=== PATIENT | female | born 1975 | race Caucasian/White ===

== ENCOUNTER 2018-09-01 12:40 | Outpatient (CLI) | payer BC ==
[~2018-09-01] VITALS: Ht 157.5 cm; Wt 66.5 kg
[2018-09-01 12:59] VITALS: Ht 157.5 cm; Wt 66.5 kg
[2018-09-01] MEDS ORDERED: PREN-93 PO (12:59)
[2018-09-01 13:00] VITALS: BP 118/71; PULSE 78; RESP 18
--- NOTE | 2018-09-01 17:21 | TRIAGE ---
OB Triage Datetime Report Generated by CPN: 09/01/2018 17:20 Datetime: 09/01/2018 14:52 Labor Evaluation Frequency: 0 Monitor Mode: External Pattern: Normal: <= 5 Contractions in 10 Minutes Resting Tone [place]: Relaxed Heart Rate FHR Baseline Rate: 140 Monitor Mode: External US Variability: Moderate 6-25 bpm Accelerations: 10X10 Decelerations: None Category: Category I Datetime: 09/01/2018 12:56 Assessment Type: Triage Maternal Assessment Level of Consciousness: Fully Conscious DTR's/Clonus: DTRs 2+; No Clonus Headache: Denies Blurred Vision: No Respiratory Effort: Unlabored; Regular Rhythm; Equal Expansion Breath Sounds, Left: Clear and Equal Breath Sounds, Right: Clear and Equal Nausea/Vomiting: Denies RUQ Epigastric Pain: Denies Lower Extremities Edema: None Degree: None Upper Extremities Edema: None Degree: None Facial Edema: None Fall Risk Assessment History of Falling: (0) No Secondary Diagnosis: (0) No Ambulatory Aid: (0) Bedrest/Nurse Assist IV Therapy: (0) No Gait: (0) Normal/Bedrest/Immobile Mental Status: (0) Oriented to Own Ability Fall Score: 0 Fall Risk Score Definition: No Risk: No action required Datetime: 09/01/2018 12:55 Time of Arrival: 09/01/2018 12:29 EGA: 22.1 Arrived By: Ambulatory Arrived From: Dr. Ortiz Chief Complaint: PT. SENT FROM CLINIC FOR EVAL. OF RIGHT CALF PAIN AND HBP Movement: Present Contractions: Denies/Absent Rupture of Membranes: Denies Vaginal Bleeding: None Vaginal Discharge: Denies Recent Sexual Intercouse: Denies Abdominal Trauma: Not Applicable Patient Complaints: None Time Provider Notified: 09/01/2018 13:51 Provider Notified: DELSHAD Initial Plan: CBC/CMP/URIC ACID/BLE DOPPLER Datetime: 09/01/2018 12:52 Monitor Mode: External Monitor Mode: External US
--- NOTE | 2018-09-02 23:53 | PN ---
Triage Information Date/Time Reason for visit: elevated BP in clinic and right calf pain Weeks of Gestation 22 weeks /Para Diabetes: none Hypertention: none Objective Vital Signs Date Temp Pulse Resp B/P (MAP) Pulse Ox O2 O2 Flow FiO2 Time Delivery Rate 09/01/18 98.8 78 18 118/71 99 Room Air 13:00 (87) Heart Rate: 140's Heart Rate Comments Appropriate for GA Results/Medications Result Diagram: 09/01/18 1321 09/01/18 1321 Imaging Results Venous doppler negative for DVT Disposition: Discharge Assessment/Plan No sign of preeclampsia FREEDOM ABBOTT MD Sep 02, 2018 23:53
== END 2018-09-01 17:15 | disposition home or self-care (01) ==
LOC: OBT 12:40 → L-D 12:40 → OBT 17:15
PROVIDERS: ATTEND Obstetrics & Gynecology
DX: O26.893 Other specified pregnancy related conditions, third trimester (principal); M79.661 Pain in right lower leg; Z3A.22 22 weeks gestation of pregnancy
CPT/HCPCS: 80053; 81003; 84560; 85025; 93970; Z7500; G0463

== ENCOUNTER 2018-11-11 15:53 | Outpatient (CLI) | payer BC ==
[~2018-11-11] VITALS: Ht 157.5 cm; Wt 69.3 kg
[~2018-11-11 15:53] MED LIST: PREN-93 PO
[2018-11-11 16:14] VITALS: BP 125/75; PULSE 79; RESP 18
[2018-11-11 16:15] VITALS: Ht 157.5 cm; Wt 69.3 kg
--- NOTE | 2018-11-11 17:44 | PN ---
Triage Information Date/Time Reason for visit: elevated BP in clinic Weeks of Gestation 32 weeks /Para L1 Diabetes: none Hypertention: none Objective Vital Signs Date Temp Pulse Resp B/P (MAP) Pulse Ox O2 O2 Flow FiO2 Time Delivery Rate 11/11/18 98.0 79 18 125/75 94 Room Air 16:14 (92) Heart Rate: 130's Heart Rate Comments Reactive Contractions: None Results/Medications Result Diagram: 11/11/18 1617 11/11/18 1617 Results 24 hrs Laboratory Tests Test 11/11/18 15:55 11/11/18 16:17 Urine Color YELLOW Urine Clarity CLEAR Urine pH 7.0 Urine Specific [place] 1.013 Urine Ketones NEGATIVE Urine Nitrite NEGATIVE Urine Bilirubin NEGATIVE Urine Urobilinogen NEGATIVE Urine Leukocyte Esterase NEGATIVE Urine Hemoglobin NEGATIVE Urine Glucose NEGATIVE Urine Total Protein NEGATIVE White Blood Count 7.8 Red Blood Count 3.76 L Hemoglobin 11.9 L Hematocrit 34.5 L Mean Corpuscular Volume 91.8 Mean Corpuscular Hemoglobin 31.6 Mean Corpuscular Hemoglobin Concent 34.5 Red Cell Distribution Width 12.1 Platelet Count 234 Mean Platelet Volume 9.0 Immature Granulocytes % 0.500 H Neutrophils % 67.2 Lymphocytes % 25.1 Monocytes % 6.6 Eosinophils % 0.3 Basophils % 0.3 Nucleated Red Blood Cells % 0.0 Immature Granulocytes # 0.040 H Neutrophils # 5.2 Lymphocytes # 2.0 Monocytes # 0.5 Eosinophils # 0.0 Basophils # 0.0 Nucleated Red Blood Cells # 0.0 Sodium Level 137 Potassium Level 4.3 Chloride Level 106 Carbon Dioxide Level 23 Anion Gap 8 Blood Urea Nitrogen 9 Creatinine 0.61 Est Glomerular Filtrat Rate mL/min > 60 Glucose Level 97 Uric Acid 5.4 Calcium Level 8.9 Total Bilirubin 0.4 Direct Bilirubin 0.00 Indirect Bilirubin 0.4 Aspartate Amino Transf (AST/SGOT) 28 Alanine Aminotransferase (ALT/SGPT) 29 Alkaline Phosphatase 183 H Total Protein 6.7 Albumin 3.3 Globulin 3.40 H Albumin/Globulin Ratio 0.97 Imaging Results EFW and BPP normal Disposition: Discharge Assessment/Plan Follow up in office on 11/14/2018. FREEDOM ABBOTT MD November 11, 2018 17:44
== END 2018-11-11 17:42 | disposition home or self-care (01) ==
LOC: OBT 15:53 → L-D 15:55 → OBT 17:42
PROVIDERS: ATTEND Obstetrics & Gynecology
DX: O26.893 Other specified pregnancy related conditions, third trimester (principal); R03.0 Elevated blood-pressure reading, without diagnosis of hypertension; O09.523 Supervision of elderly multigravida, third trimester; Z3A.32 32 weeks gestation of pregnancy
CPT/HCPCS: 76815; 76818; 80053; 81003; 84560; 85025; Z7500; G0463

== ENCOUNTER 2018-11-29 19:38 | Inpatient (IN) | payer BC ==
[~2018-11-29] VITALS: Ht 162.6 cm; Wt 69.8 kg
[2018-11-29 19:52] VITALS: BP 166/90; PULSE 79; RESP 20
[2018-11-29 19:53] VITALS: Ht 162.6 cm; Wt 69.8 kg
[2018-11-29] MEDS: LACTATED RINGER'S 1,000 ML IV SCH (21:02)
[2018-11-29] MEDS ORDERED: BUTORPHANOL 2 MG INJ IV ONE (22:00)
[2018-11-29] MEDS ORDERED: LACTATED RINGER'S 500 ML IV ONE (22:00)
[2018-11-29] MEDS: DEXTROSE 5%-LR 1,000 ML IV SCH (23:56)
[2018-11-30] MEDS: DEXTROSE 5%-LR 1,000 ML IV SCH (07:34)
[2018-11-30] MEDS: PRENATAL VITAMIN PO SCH (09:35)
[2018-11-30] MEDS: BETAMET NA PHOS/AC(6 MG/ML) 2 ML INJ SYG IM SCH (12:10)
[2018-11-30] MEDS: LACTATED RINGER'S 1,000 ML IV SCH ×2 (16:13→20:06)
--- NOTE | 2018-11-30 18:12 | HP ---
Date/Time of Note Date/Time of Note DATE: 11/30/18 TIME: 18:10 OB - History Hx of Present Chief Complaint: abdomional pain Estimated Due Date: Jan 04, 2019 : 3 Para: 2 Spontaneous : 0 Therapeutic : 0 Care: Good Care Ultrasounds: Normal mid trimester US Obstetrical Complications: None Medical Complications: None Past Family/Social History * Past Medical, Surgical, Family and Obstetric Histories reviewed from chart. OB Admission Exam Vital Signs Vital Signs Vital Signs Date Temp Pulse Resp B/P (MAP) Pulse Ox O2 O2 Flow FiO2 Time Delivery Rate 11/29/18 97.9 79 20 166/90 Room Air 19:52 (115) Physical Exam HEENT: WNL Heart: Rhythm Normal Lungs: Clear, Equal Abdomen: WNL Extremities: Normal Reflexes: Normal Heart Rate: 120's Accelerations: Accelerations Present Decelerations: No Decelerations Varibility: Moderate Contractions on Admission: None Last 72 hours Lab Results CBC & BMP 11/29/18 21:00 11/30/18 05:45 11/30/18 14:05 11/30/18 16:11 Liver Function Test 11/29/18 21:00 11/30/18 05:45 11/30/18 16:11 Alanine Aminotransferase (ALT/SGPT) 26 19 29 Albumin 3.6 3.1 L 3.2 L Alkaline Phosphatase 210 H 169 H 187 H Aspartate Amino Transf (AST/SGOT) 23 26 31 Direct Bilirubin 0.00 0.00 0.00 Total Protein 7.1 6.0 #L 6.6 OB Assessment/Plan Reason for admission: other Other Assessment: abdominal pain R/O preeclampsia Plan: Other Other plan: Admit PIH panel 24 hour urine collection FREEDOM ABBOTT MD Nov 30, 2018 18:12
[2018-12-01] MEDS: LACTATED RINGER'S 1,000 ML IV SCH ×2 (00:30→08:25)
[2018-12-01] MEDS: BETAMET NA PHOS/AC(6 MG/ML) 2 ML INJ SYG IM SCH (12:14)
[2018-12-01] MEDS: PRENATAL VITAMIN PO SCH (12:14)
--- NOTE | 2018-12-01 13:59 | QN ---
Documentation Comment No complaint Afebrile VSS Strip Reactive, few episodes of heart deceleration noted earlier BPP 8/8 24 hour urine protein 384 Will get Perinatology consult FREEDOM ABBOTT MD Dec 01, 2018 13:59
--- NOTE | 2018-12-02 02:23 | CONS ---
DATE OF ADMISSION: 11/29/2018 DATE OF CONSULTATION: 12/01/2018 TYPE OF CONSULTATION: Perinatology. HISTORY OF PRESENT ILLNESS: The patient is 43-year-old currently at 35 weeks and 1 day, presented wi th abnormal high blood pressure. She has had 1 severe range blood pressure, otherwise in the moderat e range on no medication. She denies chronic hypertensive medications. She had some general abdomin al pain. Before the time that she came in however she has no complaints. PAST SURGICAL HISTORY: Not significant. OBSTETRICAL HISTORY: Not significant. REVIEW OF SYSTEMS: All reviewed, all negative. VITAL SIGNS: Blood pressure as I am talking to her, her systolic blood pressure is 160/78. Physical examination deferred. LABORATORY DATA: Platelet is normal. AST, ALT are normal. Creatinine at the time of admission was 0.7. It has decreased to 0.66. heart tones reassuring. Contractions none. IMPRESSION: Intrauterine at 35 weeks and 1 day, currently mild preeclampsia given the 24-h our urine protein over 300 mg and one severe range blood pressure. I do not count the one that I saw as I was talking to her since most likely she was stressed out. Receiving betamethasone. RECOMMENDATIONS Continuous heart tone monitoring. I do recommend delivery if she has 1 or 2 m ore of severe range blood pressures without any stressors or headache, GI, pulmonary or right upper q uadrant pain. If she is stable in terms of the blood pressure and she has no symptoms and heart tones are cristina ssuring, we could consider discharge the patient home with twice weekly monitoring and delivery at 37 weeks; otherwise, in-house management and as I mentioned above, the reason for delivery. In additio n to those reasons mentioned above, nonreassuring heart tones would be obviously indication of delivery. Dictated By: DOMINGA GOMES MD ST/[facility]S Conf#: [id number] DID#: [id number] CC: FREEDOM ABBOTT MD;*EndCC*
[2018-12-02] MEDS: PRENATAL VITAMIN PO SCH (08:34)
--- NOTE | 2018-12-02 11:48 | DS ---
Date/Time of Note Date/Time of Note DATE: 12/02/18 TIME: 11:47 Obstetrical Discharge Record Final Diagnosis Final Diagnosis: not delivered Complications Preg induced Hypertension Condition on Discharge Physical Assessment Voiding: Yes Bowel Movement: Yes Calf Tenderness: No Patient Condition: Stable FREEDOM ABBOTT MD Dec 02, 2018 11:48
== END 2018-12-02 12:10 | disposition home or self-care (01) | DRG 833 ==
LOC: OBT 19:38 → L-D 19:38 → OBT 20:00
PROVIDERS: ADMIT Obstetrics & Gynecology; ATTEND Obstetrics & Gynecology
PROC: 4A1HXCZ Monitoring of Products of Conception, Cardiac Rate, External Approach (ICD-10-PCS; principal; 2018-11-29)
DX: O14.03 Mild to moderate pre-eclampsia, third trimester (principal); O13.3 Gestational [pregnancy-induced] hypertension without significant proteinuria, third trimester; O26.892 Other specified pregnancy related conditions, second trimester; R10.9 Unspecified abdominal pain; O76 Abnormality in fetal heart rate and rhythm complicating labor and delivery; O09.523 Supervision of elderly multigravida, third trimester; Z3A.35 35 weeks gestation of pregnancy
CPT/HCPCS: 76815; 76818; 80053; 81003; 82575; 84156; 84560; 85025; 85610; 85730; G0463; J0595; J0702; J7120; J7121

== ENCOUNTER 2018-12-04 09:40 | Outpatient (CLI) | payer BC ==
[~2018-12-04] VITALS: Ht 162.6 cm; Wt 70.5 kg
[2018-12-04 09:57] VITALS: Ht 162.6 cm; Wt 70.5 kg
[2018-12-04 09:58] VITALS: BP 142/83; PULSE 76; RESP 19
--- NOTE | 2018-12-04 12:27 | TRIAGE ---
OB Triage Datetime Report Generated by CPN: 12/04/2018 12:26 Datetime: 12/04/2018 11:26 Labor Evaluation Frequency: irregular Monitor Mode: External Duration (sec)2399: 50-100 Quality: Mild Pattern: Normal: <= 5 Contractions in 10 Minutes Resting Tone [place]: Relaxed Heart Rate FHR Baseline Rate: 135 Monitor Mode: External US Variability: Moderate 6-25 bpm Accelerations: 15X15 Decelerations: None Category: Category I Datetime: 12/04/2018 10:06 Assessment Type: Triage Maternal Assessment Level of Consciousness: Keenly Alert, Responsive DTR's/Clonus: DTRs 2+; No Clonus Headache: Denies Blurred Vision: No Respiratory Effort: Unlabored; Regular Rhythm; Equal Expansion Breath Sounds, Left: Clear and Equal Breath Sounds, Right: Clear and Equal Nausea/Vomiting: Denies RUQ Epigastric Pain: Denies Lower Extremities Edema: None Degree: None Upper Extremities Edema: None Degree: None Facial Edema: None Fall Risk Assessment History of Falling: (0) No Secondary Diagnosis: (0) No Ambulatory Aid: (0) Bedrest/Nurse Assist IV Therapy: (0) No Gait: (0) Normal/Bedrest/Immobile Mental Status: (0) Oriented to Own Ability Fall Score: 0 Fall Risk Score Definition: No Risk: No action required Datetime: 12/04/2018 10:03 Time of Arrival: 12/04/2018 09:33 EGA: 35.6 Arrived By: Ambulatory Chief Complaint: R/O PIH Movement: Present Contractions: Denies/Absent Rupture of Membranes: Denies Vaginal Bleeding: None Vaginal Discharge: Denies Recent Sexual Intercouse: Denies Abdominal Trauma: Not Applicable Patient Complaints: Other Time Provider Notified: 12/04/2018 11:35 Provider Notified: dr mejias Initial Plan: NST BPP UA URIC ACID CBC CMP Datetime: 12/04/2018 09:42 EGA: 35.1 Datetime: 12/02/2018 11:41 Headache: Denies Blurred Vision: No Nausea/Vomiting: Denies RUQ Epigastric Pain: Denies Facial Edema: None Labor Evaluation Frequency: 0 Monitor Mode: External Pattern: Normal: <= 5 Contractions in 10 Minutes Resting Tone [place]: Relaxed Heart Rate FHR Baseline Rate: 130 Monitor Mode: External US FHR Baseline Changes: No Baseline Change Variability: Moderate 6-25 bpm Accelerations: 15X15 Decelerations: None Pain Assessment Pain Scale: 0 Pain Presence: None/Denies Pain Type: N/A Datetime: 12/02/2018 11:00 Labor Evaluation Frequency: 0 Monitor Mode: External Pattern: Normal: <= 5 Contractions in 10 Minutes Resting Tone [place]: Relaxed Heart Rate FHR Baseline Rate: 135 Monitor Mode: External US FHR Baseline Changes: No Baseline Change Variability: Moderate 6-25 bpm Accelerations: 15X15 Decelerations: None Pain Assessment Pain Scale: 0 Pain Presence: None/Denies Pain Type: N/A Datetime: 12/02/2018 10:33 Resting Tone [place]: Relaxed Datetime: 12/02/2018 10:01 Labor Evaluation Frequency: 0 Monitor Mode: External Pattern: Normal: <= 5 Contractions in 10 Minutes Resting Tone [place]: Relaxed Heart Rate FHR Baseline Rate: 130 Monitor Mode: External US FHR Baseline Changes: No Baseline Change Variability: Moderate 6-25 bpm Accelerations: 15X15 Decelerations: None Datetime: 12/02/2018 09:01 Labor Evaluation Frequency: 135 Monitor Mode: External Pattern: Normal: <= 5 Contractions in 10 Minutes Resting Tone [place]: Relaxed Heart Rate FHR Baseline Rate: 135 Monitor Mode: External US FHR Baseline Changes: No Baseline Change Variability: Moderate 6-25 bpm Accelerations: 15X15 Decelerations: None Datetime: 12/02/2018 08:01 Labor Evaluation Frequency: 0 Monitor Mode: External Pattern: Normal: <= 5 Contractions in 10 Minutes Resting Tone [place]: Relaxed Heart Rate FHR Baseline Rate: 135 Monitor Mode: External US FHR Baseline Changes: No Baseline Change Variability: Moderate 6-25 bpm Accelerations: 15X15 Decelerations: None Datetime: 12/02/2018 07:27 Assessment Type: Ongoing Assessment Maternal Assessment Level of Consciousness: Fully Conscious Headache: Denies Blurred Vision: No Respiratory Effort: Unlabored; Regular Rhythm; Equal Expansion Breath Sounds, Left: Clear and Equal Breath Sounds, Right: Clear and Equal Nausea/Vomiting: Denies RUQ Epigastric Pain: Denies Lower Extremities Edema: None Degree: None Upper Extremities Edema: None Degree: None Facial Edema: None Fall Risk Assessment History of Falling: (0) No Secondary Diagnosis: (0) No Ambulatory Aid: (0) Bedrest/Nurse Assist IV Therapy: (0) No Gait: (0) Normal/Bedrest/Immobile Mental Status: (0) Oriented to Own Ability Fall Score: 0 Fall Risk Score Definition: No Risk: No action required Datetime: 12/02/2018 07:26 Pain Assessment Pain Scale: 0 Pain Presence: None/Denies Pain Type: N/A Datetime: 12/02/2018 07:00 Labor Evaluation Frequency: NONE Monitor Mode: External Resting Tone [place]: Relaxed Heart Rate FHR Baseline Rate: 130 Monitor Mode: External US Variability: Moderate 6-25 bpm Accelerations: 15X15 Decelerations: None Datetime: 12/02/2018 06:00 Labor Evaluation Frequency: NONE Monitor Mode: External Resting Tone [place]: Relaxed Heart Rate FHR Baseline Rate: 130 Monitor Mode: External US Variability: Moderate 6-25 bpm Accelerations: 15X15 Decelerations: None Datetime: 12/02/2018 04:59 Labor Evaluation Frequency: NONE Monitor Mode: External Resting Tone [place]: Relaxed Heart Rate FHR Baseline Rate: 130 Monitor Mode: External US Variability: Moderate 6-25 bpm Accelerations: 15X15 Decelerations: None Datetime: 12/02/2018 03:59 Labor Evaluation Frequency: NONE Monitor Mode: External Resting Tone [place]: Relaxed Heart Rate FHR Baseline Rate: 135 Monitor Mode: External US Variability: Moderate 6-25 bpm Accelerations: 15X15 Decelerations: None Datetime: 12/02/2018 03:19 Temperature Route: Oral Datetime: 12/02/2018 03:00 Labor Evaluation Frequency: NONE Monitor Mode: External Resting Tone [place]: Relaxed Heart Rate FHR Baseline Rate: 125 Monitor Mode: External US Variability: Moderate 6-25 bpm Accelerations: None Decelerations: None Datetime: 12/02/2018 02:00 Labor Evaluation Frequency: X1 IN ONE HOUR Monitor Mode: External Duration (sec)2399: 70 Quality: Mild Resting Tone [place]: Relaxed Heart Rate FHR Baseline Rate: 125 Monitor Mode: External US Variability: Moderate 6-25 bpm Accelerations: 15X15 Decelerations: Variable Datetime: 12/02/2018 01:00 Labor Evaluation Frequency: NONE Monitor Mode: External Resting Tone [place]: Relaxed Heart Rate FHR Baseline Rate: 135 Monitor Mode: External US Variability: Moderate 6-25 bpm Accelerations: 15X15 Decelerations: None Category: Category I Datetime: 12/01/2018 23:59 Labor Evaluation Frequency: NONE Monitor Mode: External Resting Tone [place]: Relaxed Heart Rate FHR Baseline Rate: 125 Monitor Mode: External US Variability: Moderate 6-25 bpm Accelerations: 15X15 Decelerations: None Category: Category I Datetime: 12/01/2018 23:00 Labor Evaluation Frequency: NONE Monitor Mode: External Resting Tone [place]: Relaxed Heart Rate FHR Baseline Rate: 135 Monitor Mode: External US Variability: Moderate 6-25 bpm Accelerations: 15X15 Decelerations: None Category: Category I Datetime: 12/01/2018 22:00 Labor Evaluation Frequency: NONE Monitor Mode: External Resting Tone [place]: Relaxed Heart Rate FHR Baseline Rate: 135 Monitor Mode: External US Variability: Moderate 6-25 bpm Accelerations: 15X15 Decelerations: None Category: Category I Datetime: 12/01/2018 20:59 Labor Evaluation Frequency: NONE Monitor Mode: External Resting Tone [place]: Relaxed Heart Rate FHR Baseline Rate: 125 Monitor Mode: External US Variability: Moderate 6-25 bpm Accelerations: 15X15 Decelerations: None Category: Category I Datetime: 12/01/2018 19:59 Labor Evaluation Frequency: NONE Monitor Mode: External Resting Tone [place]: Relaxed Heart Rate FHR Baseline Rate: 135 Monitor Mode: External US Variability: Moderate 6-25 bpm Accelerations: 15X15 Decelerations: None Category: Category I Datetime: 12/01/2018 19:51 Stage of : Antepartum Assessment Type: Ongoing Assessment Maternal Assessment Level of Consciousness: Fully Conscious DTR's/Clonus: DTRs 2+; No Clonus Headache: Denies Blurred Vision: No Respiratory Effort: Unlabored; Regular Rhythm; Equal Expansion Breath Sounds, Left: Clear and Equal Breath Sounds, Right: Clear and Equal Nausea/Vomiting: Denies RUQ Epigastric Pain: Denies Lower Extremities Edema: None Degree: None Upper Extremities Edema: None Degree: None Facial Edema: None Temperature Route: Oral Fall Risk Assessment History of Falling: (0) No Secondary Diagnosis: (0) No Ambulatory Aid: (0) Bedrest/Nurse Assist IV Therapy: (0) No Gait: (0) Normal/Bedrest/Immobile Mental Status: (0) Oriented to Own Ability Fall Score: 0 Fall Risk Score Definition: No Risk: No action required Pain Assessment Pain Scale: 0 Pain Presence: None/Denies Pain Type: N/A Pain Goal: 3 Datetime: 12/01/2018 19:00 Labor Evaluation Frequency: NONE Monitor Mode: External Resting Tone [place]: Relaxed Heart Rate FHR Baseline Rate: 135 Monitor Mode: External US FHR Baseline Changes: No Baseline Change Variability: Moderate 6-25 bpm Accelerations: 15X15 Decelerations: None Datetime: 12/01/2018 18:00 Labor Evaluation Frequency: x1 Monitor Mode: External Duration (sec)2399: 40 Quality: Mild Resting Tone [place]: Relaxed Heart Rate FHR Baseline Rate: 130 Monitor Mode: External US FHR Baseline Changes: No Baseline Change Variability: Moderate 6-25 bpm Accelerations: 15X15 Decelerations: None Datetime: 12/01/2018 17:00 Labor Evaluation Frequency: none Monitor Mode: External Resting Tone [place]: Relaxed Heart Rate FHR Baseline Rate: 130 Monitor Mode: External US FHR Baseline Changes: No Baseline Change Variability: Moderate 6-25 bpm Accelerations: 15X15 Decelerations: None Datetime: 12/01/2018 16:00 Labor Evaluation Frequency: none Monitor Mode: External Resting Tone [place]: Relaxed Heart Rate FHR Baseline Rate: 135 Monitor Mode: External US FHR Baseline Changes: No Baseline Change Variability: Moderate 6-25 bpm Accelerations: 15X15 Decelerations: None Datetime: 12/01/2018 15:00 Labor Evaluation Frequency: none Monitor Mode: External Resting Tone [place]: Relaxed Heart Rate FHR Baseline Rate: 135 Monitor Mode: External US FHR Baseline Changes: No Baseline Change Variability: Moderate 6-25 bpm Accelerations: 15X15 Decelerations: None Datetime: 12/01/2018 14:00 Labor Evaluation Frequency: none Monitor Mode: External Resting Tone [place]: Relaxed Heart Rate FHR Baseline Rate: 140 Monitor Mode: External US FHR Baseline Changes: No Baseline Change Variability: Moderate 6-25 bpm Accelerations: 15X15 Decelerations: None Datetime: 12/01/2018 13:00 Stage of : Antepartum Labor Evaluation Frequency: none Monitor Mode: External Resting Tone [place]: Relaxed Heart Rate FHR Baseline Rate: 130 Monitor Mode: External US FHR Baseline Changes: No Baseline Change Variability: Moderate 6-25 bpm Accelerations: 15X15 Decelerations: None Datetime: 12/01/2018 12:00 Labor Evaluation Frequency: none Monitor Mode: External Resting Tone [place]: Relaxed Heart Rate FHR Baseline Rate: 130 Monitor Mode: External US FHR Baseline Changes: No Baseline Change Variability: Moderate 6-25 bpm Accelerations: 15X15 Decelerations: None Datetime: 12/01/2018 11:00 Labor Evaluation Frequency: x1 Monitor Mode: External Duration (sec)2399: 50 Quality: Mild Pattern: Normal: <= 5 Contractions in 10 Minutes Resting Tone [place]: Relaxed Heart Rate FHR Baseline Rate: 130 Monitor Mode: External US FHR Baseline Changes: No Baseline Change Variability: Moderate 6-25 bpm Accelerations: 15X15 Decelerations: Variable Datetime: 12/01/2018 10:55 Interventions: Side to Side Comments: Patient lying flat on her back with onset of deceleration. Instructed to lay on her right side. HR returned to basline with position change. Educated patient on importance of side lyin g and avoiding being flat on her back related to oxygenated to the baby. Pillows provided. Patient st ates understanding. Datetime: 12/01/2018 10:00 Labor Evaluation Frequency: x1 Monitor Mode: External Duration (sec)2399: 60 Quality: Mild Pattern: Normal: <= 5 Contractions in 10 Minutes Resting Tone [place]: Relaxed Heart Rate FHR Baseline Rate: 130 Monitor Mode: External US FHR Baseline Changes: No Baseline Change Variability: Moderate 6-25 bpm Accelerations: 15X15 Decelerations: None Datetime: 12/01/2018 09:00 Labor Evaluation Frequency: occasional Monitor Mode: External Duration (sec)2399: 40-50 Quality: Mild Resting Tone [place]: Relaxed Heart Rate FHR Baseline Rate: 130 Monitor Mode: External US FHR Baseline Changes: No Baseline Change Variability: Moderate 6-25 bpm Accelerations: 15X15 Decelerations: None Datetime: 12/01/2018 08:18 Stage of : Antepartum Pain Assessment Pain Scale: 0 Pain Presence: None/Denies Pain Type: N/A Datetime: 12/01/2018 08:00 Assessment Type: Ongoing Assessment Maternal Assessment Level of Consciousness: Fully Conscious DTR's/Clonus: DTRs 2+; No Clonus Blurred Vision: No Respiratory Effort: Unlabored; Regular Rhythm Breath Sounds, Left: Clear and Equal Breath Sounds, Right: Clear and Equal Nausea/Vomiting: Denies RUQ Epigastric Pain: Denies Lower Extremities Edema: None Degree: None Upper Extremities Edema: None Degree: None Facial Edema: None Fall Risk Assessment History of Falling: (0) No Secondary Diagnosis: (0) No Ambulatory Aid: (0) Bedrest/Nurse Assist IV Therapy: (20) Yes Gait: (0) Normal/Bedrest/Immobile Mental Status: (0) Oriented to Own Ability Fall Score: 20 Fall Risk Score Definition: No Risk: No action required Datetime: 12/01/2018 07:53 Labor Evaluation Frequency: none Monitor Mode: External Resting Tone [place]: Relaxed Heart Rate FHR Baseline Rate: 130 Monitor Mode: External US FHR Baseline Changes: No Baseline Change Variability: Moderate 6-25 bpm Accelerations: 15X15 Decelerations: None Datetime: 12/01/2018 07:36 Stage of : Antepartum Datetime: 12/01/2018 07:30 Stage of : Antepartum Datetime: 12/01/2018 06:44 Stage of : Antepartum Maternal Assessment Level of Consciousness: Fully Conscious Labor Evaluation Frequency: 0 Monitor Mode: External Resting Tone [place]: Relaxed Heart Rate FHR Baseline Rate: 130 Monitor Mode: External US FHR Baseline Changes: No Baseline Change Variability: Moderate 6-25 bpm Accelerations: 15X15 Decelerations: None Pain Assessment Pain Scale: 0 Pain Goal: 0 Datetime: 12/01/2018 05:54 Comments: Fetus decel to 70 bpm x 60 secs. total decel from beginning to end was 140 sec with retu rn to baseline. Pt was agin lying low fowlers supine. Went in and awakened pt to have her roll to h er side. Datetime: 12/01/2018 05:42 Stage of : Antepartum Maternal Assessment Level of Consciousness: Fully Conscious Temperature Route: Oral Labor Evaluation Frequency: 0 Monitor Mode: External Resting Tone [place]: Relaxed Heart Rate FHR Baseline Rate: 130 Monitor Mode: External US FHR Baseline Changes: No Baseline Change Variability: Moderate 6-25 bpm Accelerations: 15X15 Decelerations: None Pain Assessment Pain Scale: 0 Pain Goal: 0 Datetime: 12/01/2018 05:03 Comments: Prolonged decel to 70 bpm x 30 sec, total time of del from start to return to baseline 70 secs. Moderate variability the entire time. Datetime: 12/01/2018 04:24 Stage of : Antepartum Maternal Assessment Level of Consciousness: Fully Conscious Labor Evaluation Frequency: 0 Monitor Mode: External Resting Tone [place]: Relaxed Heart Rate FHR Baseline Rate: 130 Monitor Mode: External US FHR Baseline Changes: No Baseline Change Variability: Moderate 6-25 bpm Accelerations: 15X15 Decelerations: None Comments: 2 min prolonged decel down to 60 bpm x 60 sec, toal time from start to finish was 120 sec . Returned to baseline 130 bpm with no intervention. Encouraged pt to not sleep on her back. Pain Assessment Pain Scale: 0 Pain Goal: 0 Datetime: 12/01/2018 03:42 Stage of : Antepartum Maternal Assessment Level of Consciousness: Fully Conscious Labor Evaluation Frequency: 0 Monitor Mode: External Resting Tone [place]: Relaxed Heart Rate FHR Baseline Rate: 130 Monitor Mode: External US FHR Baseline Changes: No Baseline Change Variability: Moderate 6-25 bpm Accelerations: 15X15 Decelerations: None Pain Assessment Pain Scale: 0 Pain Goal: 0 Datetime: 12/01/2018 02:42 Stage of : Antepartum Maternal Assessment Level of Consciousness: Fully Conscious Labor Evaluation Frequency: 0 Monitor Mode: External Resting Tone [place]: Relaxed Heart Rate FHR Baseline Rate: 130 Monitor Mode: External US FHR Baseline Changes: No Baseline Change Variability: Moderate 6-25 bpm Accelerations: 15X15 Decelerations: None Pain Assessment Pain Scale: 0 Pain Goal: 0 Datetime: 12/01/2018 01:43 Stage of : Antepartum Maternal Assessment Level of Consciousness: Fully Conscious Labor Evaluation Frequency: 0 Monitor Mode: External Resting Tone [place]: Relaxed Heart Rate FHR Baseline Rate: 130 Monitor Mode: External US FHR Baseline Changes: No Baseline Change Variability: Moderate 6-25 bpm Accelerations: 15X15 Decelerations: None Pain Assessment Pain Scale: 0 Pain Goal: 0 Datetime: 12/01/2018 00:42 Stage of : Antepartum Maternal Assessment Level of Consciousness: Fully Conscious Labor Evaluation Frequency: 0 Monitor Mode: External Resting Tone [place]: Relaxed Heart Rate FHR Baseline Rate: 130 Monitor Mode: External US FHR Baseline Changes: No Baseline Change Variability: Moderate 6-25 bpm Accelerations: 15X15 Decelerations: None Pain Assessment Pain Scale: 0 Pain Goal: 0 Datetime: 12/01/2018 00:30 Stage of : Antepartum Datetime: 11/30/2018 23:42 Stage of : Antepartum Maternal Assessment Level of Consciousness: Fully Conscious Temperature Route: Oral Labor Evaluation Frequency: 0 Monitor Mode: External Resting Tone [place]: Relaxed Heart Rate FHR Baseline Rate: 130 Monitor Mode: External US FHR Baseline Changes: No Baseline Change Variability: Moderate 6-25 bpm Accelerations: 15X15 Decelerations: None Pain Assessment Pain Scale: 0 Pain Goal: 0 Datetime: 11/30/2018 22:42 Stage of : Antepartum Maternal Assessment Level of Consciousness: Fully Conscious Labor Evaluation Frequency: 0 Monitor Mode: External Resting Tone [place]: Relaxed Heart Rate FHR Baseline Rate: 130 Monitor Mode: External US FHR Baseline Changes: No Baseline Change Variability: Moderate 6-25 bpm Accelerations: 15X15 Decelerations: None Pain Assessment Pain Scale: 0 Pain Goal: 0 Datetime: 11/30/2018 21:42 Stage of : Antepartum Maternal Assessment Level of Consciousness: Fully Conscious Labor Evaluation Frequency: 0 Monitor Mode: External Resting Tone [place]: Relaxed Heart Rate FHR Baseline Rate: 130 Monitor Mode: External US FHR Baseline Changes: No Baseline Change Variability: Moderate 6-25 bpm Accelerations: 15X15 Decelerations: None Pain Assessment Pain Scale: 0 Pain Goal: 0 Datetime: 11/30/2018 20:40 Stage of : Antepartum Maternal Assessment Level of Consciousness: Fully Conscious Labor Evaluation Frequency: 0 Monitor Mode: External Resting Tone [place]: Relaxed Heart Rate FHR Baseline Rate: 130 Monitor Mode: External US FHR Baseline Changes: No Baseline Change Variability: Moderate 6-25 bpm Accelerations: 15X15 Decelerations: None Category: Category I Pain Assessment Pain Scale: 0 Pain Goal: 0 Datetime: 11/30/2018 19:50 Assessment Type: Ongoing Assessment Maternal Assessment Level of Consciousness: Fully Conscious DTR's/Clonus: DTRs 2+; No Clonus Headache: Denies Blurred Vision: No Respiratory Effort: Unlabored; Regular Rhythm; Equal Expansion Breath Sounds, Left: Clear and Equal Breath Sounds, Right: Clear and Equal Nausea/Vomiting: Denies RUQ Epigastric Pain: Denies Lower Extremities Edema: None Degree: None Upper Extremities Edema: None Degree: None Facial Edema: None Fall Risk Assessment History of Falling: (0) No Secondary Diagnosis: (0) No Ambulatory Aid: (0) Bedrest/Nurse Assist IV Therapy: (0) No Gait: (0) Normal/Bedrest/Immobile Mental Status: (0) Oriented to Own Ability Fall Score: 0 Fall Risk Score Definition: No Risk: No action required Datetime: 11/30/2018 19:41 Stage of : Antepartum Maternal Assessment Level of Consciousness: Fully Conscious DTR's/Clonus: DTRs 2+ Headache: Denies Breath Sounds, Left: Clear and Equal Breath Sounds, Right: Clear and Equal Nausea/Vomiting: Denies RUQ Epigastric Pain: Denies Temperature Route: Oral Labor Evaluation Frequency: 0 Monitor Mode: External Resting Tone [place]: Relaxed Contraction Comments: Pt states she doesn't feel UC's. Heart Rate FHR Baseline Rate: 130 Monitor Mode: External US FHR Baseline Changes: No Baseline Change Variability: Moderate 6-25 bpm Accelerations: 15X15 Decelerations: None Category: Category I Pain Assessment Pain Scale: 0 Pain Goal: 0 Datetime: 11/30/2018 19:00 Labor Evaluation Frequency: 0 Monitor Mode: External Resting Tone [place]: Relaxed Contraction Comments: pt denies ctx's Heart Rate FHR Baseline Rate: 130 Monitor Mode: External US FHR Baseline Changes: No Baseline Change Variability: Moderate 6-25 bpm Accelerations: 15X15 Decelerations: None Category: Category I Datetime: 11/30/2018 18:00 Stage of : Antepartum Labor Evaluation Frequency: NONE Monitor Mode: External Resting Tone [place]: Relaxed Heart Rate FHR Baseline Rate: 130 Monitor Mode: External US FHR Baseline Changes: No Baseline Change Variability: Moderate 6-25 bpm Accelerations: 15X15 Decelerations: None Category: Category I Pain Assessment Pain Scale: 0 Pain Presence: None/Denies Pain Type: N/A Pain Goal: 0 Datetime: 11/30/2018 17:00 Stage of : Antepartum Labor Evaluation Frequency: NONE Monitor Mode: External Resting Tone [place]: Relaxed Heart Rate FHR Baseline Rate: 130 Monitor Mode: External US FHR Baseline Changes: No Baseline Change Variability: Moderate 6-25 bpm Accelerations: 15X15 Decelerations: None Category: Category I Pain Assessment Pain Scale: 0 Pain Presence: None/Denies Pain Type: N/A Pain Goal: 0 Datetime: 11/30/2018 16:00 Stage of : Antepartum Temperature Route: Oral Labor Evaluation Frequency: NONE Monitor Mode: External Resting Tone [place]: Relaxed Heart Rate FHR Baseline Rate: 130 Monitor Mode: External US FHR Baseline Changes: No Baseline Change Variability: Moderate 6-25 bpm Accelerations: 15X15 Decelerations: None Category: Category I Pain Assessment Pain Scale: 0 Pain Presence: None/Denies Pain Type: N/A Pain Goal: 0 Datetime: 11/30/2018 15:37 Stage of : Antepartum Datetime: 11/30/2018 15:00 Stage of : Antepartum Labor Evaluation Frequency: NONE Monitor Mode: External Resting Tone [place]: Relaxed Heart Rate FHR Baseline Rate: 135 Monitor Mode: External US FHR Baseline Changes: No Baseline Change Variability: Moderate 6-25 bpm Accelerations: 15X15 Decelerations: None Category: Category I Pain Assessment Pain Scale: 0 Pain Presence: None/Denies Pain Type: N/A Pain Goal: 0 Datetime: 11/30/2018 14:00 Stage of : Antepartum Labor Evaluation Frequency: NONE Monitor Mode: External Resting Tone [place]: Relaxed Heart Rate FHR Baseline Rate: 135 Monitor Mode: External US FHR Baseline Changes: No Baseline Change Variability: Moderate 6-25 bpm Accelerations: 15X15 Decelerations: None Category: Category I Pain Assessment Pain Scale: 0 Pain Presence: None/Denies Pain Type: N/A Pain Goal: 0 Datetime: 11/30/2018 13:00 Stage of : Antepartum Maternal Assessment Level of Consciousness: Fully Conscious DTR's/Clonus: DTRs 1+ Headache: Denies Breath Sounds, Left: Clear and Equal Breath Sounds, Right: Clear and Equal Nausea/Vomiting: Denies RUQ Epigastric Pain: Denies Labor Evaluation Frequency: NONE Monitor Mode: External Resting Tone [place]: Relaxed Heart Rate FHR Baseline Rate: 140 Monitor Mode: External US Variability: Moderate 6-25 bpm Accelerations: 15X15 Decelerations: None Category: Category I Pain Assessment Pain Scale: 0 Pain Presence: None/Denies Pain Type: N/A Pain Goal: 0 Vaginal Exam Membrane Status: Intact Datetime: 11/30/2018 12:10 Stage of : Antepartum Datetime: 11/30/2018 12:00 Stage of : Antepartum Maternal Assessment Level of Consciousness: Fully Conscious DTR's/Clonus: DTRs 1+ Headache: Denies Breath Sounds, Left: Clear and Equal Breath Sounds, Right: Clear and Equal Nausea/Vomiting: Denies RUQ Epigastric Pain: Denies Labor Evaluation Frequency: NONE Monitor Mode: External Resting Tone [place]: Relaxed Heart Rate FHR Baseline Rate: 130 Monitor Mode: External US Variability: Moderate 6-25 bpm Accelerations: 15X15 Decelerations: None Category: Category I Pain Assessment Pain Scale: 0 Pain Presence: None/Denies Pain Type: N/A Pain Goal: 0 Vaginal Exam Membrane Status: Intact Datetime: 11/30/2018 11:00 Stage of : Antepartum Maternal Assessment Level of Consciousness: Fully Conscious DTR's/Clonus: DTRs 1+ Headache: Denies Breath Sounds, Left: Clear and Equal Breath Sounds, Right: Clear and Equal Nausea/Vomiting: Denies RUQ Epigastric Pain: Denies Labor Evaluation Frequency: NONE Monitor Mode: External Resting Tone [place]: Relaxed Heart Rate FHR Baseline Rate: 130 Monitor Mode: External US Variability: Moderate 6-25 bpm Accelerations: 15X15 Decelerations: None Category: Category I Pain Assessment Pain Scale: 0 Pain Presence: None/Denies Pain Type: N/A Pain Goal: 0 Vaginal Exam Membrane Status: Intact Datetime: 11/30/2018 10:00 Stage of : Antepartum Maternal Assessment Level of Consciousness: Fully Conscious DTR's/Clonus: DTRs 1+ Headache: Denies Breath Sounds, Left: Clear and Equal Breath Sounds, Right: Clear and Equal Nausea/Vomiting: Denies RUQ Epigastric Pain: Denies Labor Evaluation Frequency: NONE Monitor Mode: External Resting Tone [place]: Relaxed Heart Rate FHR Baseline Rate: 130 Monitor Mode: External US Variability: Moderate 6-25 bpm Accelerations: 15X15 Decelerations: None Category: Category I Pain Assessment Pain Scale: 0 Pain Presence: None/Denies Pain Type: N/A Pain Goal: 0 Vaginal Exam Membrane Status: Intact Datetime: 11/30/2018 09:38 Stage of : Antepartum Datetime: 11/30/2018 09:10 Stage of : Antepartum Datetime: 11/30/2018 09:00 Stage of : Antepartum Maternal Assessment Level of Consciousness: Fully Conscious DTR's/Clonus: DTRs 1+ Headache: Denies Breath Sounds, Left: Clear and Equal Breath Sounds, Right: Clear and Equal Nausea/Vomiting: Denies RUQ Epigastric Pain: Denies Labor Evaluation Frequency: NONE Monitor Mode: External Resting Tone [place]: Relaxed Heart Rate FHR Baseline Rate: 130 Monitor Mode: External US Variability: Moderate 6-25 bpm Accelerations: 15X15 Decelerations: None Category: Category I Pain Assessment Pain Scale: 0 Pain Presence: None/Denies Pain Type: N/A Pain Goal: 0 Vaginal Exam Membrane Status: Intact Datetime: 11/30/2018 08:00 Stage of : Antepartum Maternal Assessment Level of Consciousness: Fully Conscious DTR's/Clonus: DTRs 1+ Headache: Denies Breath Sounds, Left: Clear and Equal Breath Sounds, Right: Clear and Equal Nausea/Vomiting: Denies RUQ Epigastric Pain: Denies Labor Evaluation Frequency: NONE Monitor Mode: External Resting Tone [place]: Relaxed Heart Rate FHR Baseline Rate: 130 Monitor Mode: External US Variability: Moderate 6-25 bpm Accelerations: 15X15 Decelerations: None Category: Category I Pain Assessment Pain Scale: 0 Pain Presence: None/Denies Pain Type: N/A Pain Goal: 0 Pain Assessment Comments: PT DENIES HAVING PAIN AT THIS TIME Vaginal Exam Membrane Status: Intact Datetime: 11/30/2018 07:30 Maternal Assessment Level of Consciousness: Fully Conscious DTR's/Clonus: DTRs 1+ Headache: Denies Blurred Vision: No Respiratory Effort: Unlabored Breath Sounds, Left: Clear and Equal Breath Sounds, Right: Clear and Equal Nausea/Vomiting: Denies RUQ Epigastric Pain: Denies Facial Edema: None Monitor Mode: External Resting Tone [place]: Relaxed Heart Rate FHR Baseline Rate: 130 Monitor Mode: External US Variability: Moderate 6-25 bpm Accelerations: 15X15 Decelerations: None Category: Category I Vaginal Exam Membrane Status: Intact Datetime: 11/30/2018 07:28 Assessment Type: Ongoing Assessment Maternal Assessment Level of Consciousness: Fully Conscious DTR's/Clonus: DTRs 2+; No Clonus Headache: Denies Blurred Vision: No Respiratory Effort: Unlabored; Regular Rhythm; Equal Expansion Breath Sounds, Left: Clear and Equal Breath Sounds, Right: Clear and Equal Nausea/Vomiting: Denies RUQ Epigastric Pain: Denies Lower Extremities Edema: None Degree: None Upper Extremities Edema: None Degree: None Facial Edema: None Fall Risk Assessment History of Falling: (0) No Secondary Diagnosis: (0) No Ambulatory Aid: (0) Bedrest/Nurse Assist IV Therapy: (0) No Gait: (0) Normal/Bedrest/Immobile Mental Status: (0) Oriented to Own Ability Fall Score: 0 Fall Risk Score Definition: No Risk: No action required Datetime: 11/30/2018 06:59 Stage of : Antepartum Labor Evaluation Frequency: None Monitor Mode: External Pattern: Normal: <= 5 Contractions in 10 Minutes Resting Tone [place]: Relaxed Heart Rate FHR Baseline Rate: 130 Monitor Mode: External US FHR Baseline Changes: No Baseline Change Variability: Moderate 6-25 bpm Accelerations: 15X15 Decelerations: None Category: Category I Pain Assessment Pain Scale: 0 Pain Presence: None/Denies Pain Goal: 0 Datetime: 11/30/2018 06:58 Assessment Type: Ongoing Assessment Datetime: 11/30/2018 06:00 Stage of : Antepartum Labor Evaluation Frequency: None Monitor Mode: External Pattern: Normal: <= 5 Contractions in 10 Minutes Resting Tone [place]: Relaxed Heart Rate FHR Baseline Rate: 125 Monitor Mode: External US FHR Baseline Changes: No Baseline Change Variability: Moderate 6-25 bpm Accelerations: 15X15 Decelerations: Variable (Annotations: X1) Category: Category II Pain Assessment Pain Scale: 0 Pain Presence: None/Denies Pain Goal: 0 Datetime: 11/30/2018 05:00 Stage of : Antepartum Labor Evaluation Frequency: X1 Monitor Mode: External Duration (sec)2399: 60 Quality: Mild Pattern: Normal: <= 5 Contractions in 10 Minutes Resting Tone [place]: Relaxed Heart Rate FHR Baseline Rate: 125 Monitor Mode: External US FHR Baseline Changes: No Baseline Change Variability: Moderate 6-25 bpm Accelerations: 15X15 Decelerations: None Category: Category I Pain Assessment Pain Scale: 0 Pain Presence: None/Denies Pain Goal: 0 Datetime: 11/30/2018 04:00 Stage of : Antepartum Labor Evaluation Frequency: None Monitor Mode: External Pattern: Normal: <= 5 Contractions in 10 Minutes Resting Tone [place]: Relaxed Heart Rate FHR Baseline Rate: 130 Monitor Mode: External US FHR Baseline Changes: No Baseline Change Variability: Moderate 6-25 bpm Accelerations: 15X15 Decelerations: None Category: Category I Pain Assessment Pain Scale: 0 Pain Presence: None/Denies Pain Goal: 0 Datetime: 11/30/2018 03:00 Stage of : Antepartum Labor Evaluation Frequency: None Monitor Mode: External Pattern: Normal: <= 5 Contractions in 10 Minutes Resting Tone [place]: Relaxed Heart Rate FHR Baseline Rate: 125 Monitor Mode: External US FHR Baseline Changes: No Baseline Change Variability: Moderate 6-25 bpm Accelerations: 15X15 Decelerations: Variable (Annotations: X1) Category: Category II Pain Assessment Pain Scale: 0 Pain Presence: None/Denies Pain Goal: 0 Datetime: 11/30/2018 02:00 Stage of : Antepartum Labor Evaluation Frequency: None Monitor Mode: External Pattern: Normal: <= 5 Contractions in 10 Minutes Resting Tone [place]: Relaxed Heart Rate FHR Baseline Rate: 125 Monitor Mode: External US FHR Baseline Changes: No Baseline Change Variability: Moderate 6-25 bpm Accelerations: 15X15 Decelerations: None Category: Category I Pain Assessment Pain Scale: 0 Pain Presence: None/Denies Pain Goal: 0 Datetime: 11/30/2018 01:00 Stage of : Antepartum Labor Evaluation Frequency: None Monitor Mode: External Pattern: Normal: <= 5 Contractions in 10 Minutes Resting Tone [place]: Relaxed Heart Rate FHR Baseline Rate: 135 Monitor Mode: External US FHR Baseline Changes: No Baseline Change Variability: Moderate 6-25 bpm Accelerations: 15X15 Decelerations: None Category: Category I Pain Assessment Pain Scale: 0 Pain Presence: None/Denies Pain Goal: 0 Datetime: 11/30/2018 00:00 Stage of : Antepartum Labor Evaluation Frequency: X7 (Annotations: with occasional irritability.) Monitor Mode: External Duration (sec)2399: 40-60 Quality: Mild Pattern: Normal: <= 5 Contractions in 10 Minutes Resting Tone [place]: Relaxed Heart Rate FHR Baseline Rate: 130 Monitor Mode: External US FHR Baseline Changes: No Baseline Change Variability: Moderate 6-25 bpm Accelerations: 15X15 Decelerations: None Category: Category I Pain Assessment Pain Scale: 0 Pain Presence: None/Denies Pain Goal: 0 Datetime: 11/29/2018 23:00 Stage of : Antepartum Labor Evaluation Frequency: X4 Monitor Mode: External Duration (sec)2399: 50-60 (Annotations: with occasional irritability.) Quality: Mild Pattern: Normal: <= 5 Contractions in 10 Minutes Resting Tone [place]: Relaxed Heart Rate FHR Baseline Rate: 135 Monitor Mode: External US FHR Baseline Changes: No Baseline Change Variability: Moderate 6-25 bpm Accelerations: 15X15 Decelerations: None Category: Category I Datetime: 11/29/2018 22:58 Monitor Mode: External Datetime: 11/29/2018 22:46 Assessment Type: Admission Assessment Vaginal Bleeding: None Maternal Assessment Level of Consciousness: Fully Conscious DTR's/Clonus: DTRs 2+; No Clonus Headache: Denies Blurred Vision: No Respiratory Effort: Unlabored; Regular Rhythm; Equal Expansion Breath Sounds, Left: Clear and Equal Breath Sounds, Right: Clear and Equal Nausea/Vomiting: Denies RUQ Epigastric Pain: Denies Lower Extremities Edema: None Degree: None Upper Extremities Edema: None Degree: None Facial Edema: None Fall Risk Assessment History of Falling: (0) No Secondary Diagnosis: (0) No Ambulatory Aid: (0) Bedrest/Nurse Assist IV Therapy: (0) No Gait: (0) Normal/Bedrest/Immobile Mental Status: (0) Oriented to Own Ability Fall Score: 0 Fall Risk Score Definition: No Risk: No action required Labor Evaluation Frequency: Occasional Duration (sec)2399: 40-60 Quality: Mild Pattern: Normal: <= 5 Contractions in 10 Minutes Resting Tone [place]: Relaxed (Annotations: With occasional irritability.) Heart Rate FHR Baseline Rate: 135 Variability: Moderate 6-25 bpm Accelerations: 15X15 Decelerations: None Category: Category I Pain Assessment Pain Scale: 4 Pain Presence: Intermittent Pain Type: Cramping Pain Location: Abdomen Pain Goal: 0 Datetime: 11/29/2018 22:29 Labor Evaluation Frequency: X3 Monitor Mode: External Duration (sec)2399: 30-40 Quality: Mild Pattern: Normal: <= 5 Contractions in 10 Minutes Resting Tone [place]: Relaxed Heart Rate FHR Baseline Rate: 135 Monitor Mode: External [place] Variability: Moderate 6-25 bpm Accelerations: 15X15 Decelerations: None Category: Category I Datetime: 11/29/2018 22:00 Labor Evaluation Frequency: X3 Monitor Mode: External Duration (sec)2399: 30-40 Quality: Mild Pattern: Normal: <= 5 Contractions in 10 Minutes Resting Tone [place]: Relaxed Heart Rate FHR Baseline Rate: 135 Monitor Mode: External US Variability: Moderate 6-25 bpm Accelerations: 15X15 Decelerations: None Category: Category I Datetime: 11/29/2018 21:00 Stage of : Antepartum Labor Evaluation Frequency: 0 Monitor Mode: External Heart Rate FHR Baseline Rate: 135 Monitor Mode: External US Variability: Moderate 6-25 bpm Accelerations: 15X15 Decelerations: None Category: Category I Datetime: 11/29/2018 20:19 Labor Evaluation Frequency: 0 Monitor Mode: External Heart Rate FHR Baseline Rate: 140 Monitor Mode: External US Variability: Moderate 6-25 bpm Accelerations: 15X15 Decelerations: None Category: Category I Comments: U/S TECH AT BEDSIDE Datetime: 11/29/2018 19:54 Time of Arrival: 11/29/2018 19:32 EGA: 34.6 Arrived By: Ambulatory Arrived From: Home Chief Complaint: rlq abd pain Movement: Present Contractions: Denies/Absent Rupture of Membranes: Denies Vaginal Bleeding: None Vaginal Discharge: Denies Recent Sexual Intercouse: Denies Abdominal Trauma: Not Applicable Patient Complaints: None Time Provider Notified: 11/29/2018 20:01 Provider Notified: DELSHAD Initial Plan: u/a, nst, vs, call ob for orders Datetime: 11/29/2018 19:50 Assessment Type: Triage Maternal Assessment Level of Consciousness: Fully Conscious DTR's/Clonus: DTRs 2+; No Clonus Headache: Denies Blurred Vision: No Respiratory Effort: Unlabored; Regular Rhythm; Equal Expansion Breath Sounds, Left: Clear and Equal Breath Sounds, Right: Clear and Equal Nausea/Vomiting: Denies RUQ Epigastric Pain: Denies Lower Extremities Edema: None Degree: None Upper Extremities Edema: None Degree: None Facial Edema: None Fall Risk Assessment History of Falling: (0) No Secondary Diagnosis: (0) No Ambulatory Aid: (0) Bedrest/Nurse Assist IV Therapy: (0) No Gait: (0) Normal/Bedrest/Immobile Mental Status: (0) Oriented to Own Ability Fall Score: 0 Fall Risk Score Definition: No Risk: No action required Datetime: 11/29/2018 19:48 Pain Assessment Pain Scale: 8 Pain Presence: Constant Pain Type: Ache Pain Location: Abdomen Pain Goal: 5 Pain Relief Measures: Comfort Measures Pain Assessment Comments: STATES PAIN IS CONSTANT AND IS TENDER TO TOUCH Datetime: 11/11/2018 17:00 Stage of : OB Triage Maternal Assessment Level of Consciousness: Fully Conscious Labor Evaluation Frequency: 0 Monitor Mode: External Resting Tone [place]: Relaxed Heart Rate FHR Baseline Rate: 135 Monitor Mode: External US Variability: Moderate 6-25 bpm Accelerations: 15X15 Decelerations: None Category: Category I Pain Assessment Pain Scale: 1 Pain Presence: Constant Pain Type: Ache Pain Location: Head Pain Goal: 3 Vaginal Exam Membrane Status: Intact Vaginal Bleeding: None Datetime: 11/11/2018 16:07 Assessment Type: Triage Maternal Assessment Level of Consciousness: Fully Conscious DTR's/Clonus: DTRs 2+; No Clonus Headache: Denies Blurred Vision: No Respiratory Effort: Unlabored; Regular Rhythm; Equal Expansion Breath Sounds, Left: Clear and Equal Breath Sounds, Right: Clear and Equal Nausea/Vomiting: Denies RUQ Epigastric Pain: Denies Lower Extremities Edema: None Degree: None Upper Extremities Edema: None Degree: None Facial Edema: None Fall Risk Assessment History of Falling: (0) No Secondary Diagnosis: (0) No Ambulatory Aid: (0) Bedrest/Nurse Assist IV Therapy: (0) No Gait: (0) Normal/Bedrest/Immobile Mental Status: (0) Oriented to Own Ability Fall Score: 0 Fall Risk Score Definition: No Risk: No action required Datetime: 11/11/2018 16:06 Time of Arrival: 11/11/2018 15:45 EGA: 32.2 Arrived By: Ambulatory Arrived From: Office Chief Complaint: PT. SENT INTO TO EVAL FOR HBP Movement: Present Contractions: Denies/Absent Rupture of Membranes: Denies Vaginal Bleeding: None Vaginal Discharge: Denies Recent Sexual Intercouse: Denies Abdominal Trauma: Not Applicable Patient Complaints: Headache Provider Notified: DELSHAD Initial Plan: CBC/CMP/URIC ACID/UA/EFW/BPP Datetime: 11/11/2018 16:03 Monitor Mode: External Monitor Mode: External US Datetime: 09/01/2018 12:56 Fall Score: 0 Fall Risk Score Definition: No Risk: No action required Datetime: 09/01/2018 12:55 EGA: 22.1
--- NOTE | 2018-12-04 15:43 | PN ---
Triage Information Date/Time December 04, 2018 Reason for visit: Weeks of Gestation 35 weeks and 6 days /Para 3 para 1 Diabetes: none Hypertention: none Additional information 43-year-old G3, P1 with IUP at 35 weeks and [address] care [address] Henry presented to the hospital to rule out PIH. She was noted to have elevated blood pressure in the range of 140s over 80s and office visit. She denies any headache blurred vision epigastric pain or right upper quadrant pain. She denies any leaking of fluid, vaginal bleeding or decreased movement. Objective Vital Signs Date Temp Pulse Resp B/P (MAP) Pulse Ox O2 O2 Flow FiO2 Time Delivery Rate 12/04/18 97.9 76 19 142/83 09:58 (102) Heart Rate: 130's Heart Rate Comments NST category 1 and reassuring Contractions: None Exam Appearance: Alert and oriented x4 does not appear to be in any acute distress Abdomen: Soft, gravid, fundal height consider gestational age NST: Reactive BPP: 8/8 MACO: 6.9 borderline PIH labs are all normal. Uric acid: 6.4 Laboratory Tests Test 12/04/18 09:50 12/04/18 10:21 12/04/18 11:57 Urine Color STRAW Urine Clarity CLEAR Urine pH 7.0 Urine Specific [place] 1.004 Urine Ketones NEGATIVE Urine Nitrite NEGATIVE Urine Bilirubin NEGATIVE Urine Urobilinogen NEGATIVE Urine Leukocyte Esterase NEGATIVE Urine Hemoglobin NEGATIVE Urine Glucose NEGATIVE Urine Total Protein NEGATIVE White Blood Count 9.1 Red Blood Count 3.95 L Hemoglobin 12.0 Hematocrit 36.2 L Mean Corpuscular Volume 91.6 Mean Corpuscular Hemoglobin 30.4 Mean Corpuscular 33.1 Hemoglobin Concent Red Cell Distribution Width 12.1 Platelet Count 223 Mean Platelet Volume 9.3 Immature Granulocytes % 3.000 H Neutrophils % 64.2 Lymphocytes % 24.0 Monocytes % 7.9 Eosinophils % 0.4 Basophils % 0.5 Nucleated Red Blood Cells % 0.0 Immature Granulocytes # 0.270 H Neutrophils # 5.8 Lymphocytes # 2.2 Monocytes # 0.7 Eosinophils # 0.0 Basophils # 0.1 Nucleated Red Blood Cells # 0.0 Sodium Level 137 Potassium Level 4.3 Chloride Level 105 Carbon Dioxide Level 24 Anion Gap 8 Blood Urea Nitrogen 12 Creatinine 0.68 Est Glomerular Filtrat > 60 Rate mL/min Glucose Level 76 Uric Acid 6.8 Calcium Level 8.9 Total Bilirubin 0.3 Direct Bilirubin 0.00 Indirect Bilirubin 0.3 Aspartate Amino Transf (AST/SGOT) 28 Alanine 33 Aminotransferase (ALT/SGPT) Alkaline Phosphatase 171 H Total Protein 6.8 Albumin 3.4 Globulin 3.40 H Albumin/Globulin Ratio 1.00 Lab Scanned Report REFERENCE LAB Results/Medications Result Diagram: 12/04/18 1021 12/04/18 1021 Results 24 hrs Laboratory Tests Test 12/04/18 09:50 12/04/18 10:21 12/04/18 11:57 Urine Color STRAW Urine Clarity CLEAR Urine pH 7.0 Urine Specific [place] 1.004 Urine Ketones NEGATIVE Urine Nitrite NEGATIVE Urine Bilirubin NEGATIVE Urine Urobilinogen NEGATIVE Urine Leukocyte Esterase NEGATIVE Urine Hemoglobin NEGATIVE Urine Glucose NEGATIVE Urine Total Protein NEGATIVE White Blood Count 9.1 Red Blood Count 3.95 L Hemoglobin 12.0 Hematocrit 36.2 L Mean Corpuscular Volume 91.6 Mean Corpuscular Hemoglobin 30.4 Mean Corpuscular 33.1 Hemoglobin Concent Red Cell Distribution Width 12.1 Platelet Count 223 Mean Platelet Volume 9.3 Immature Granulocytes % 3.000 H Neutrophils % 64.2 Lymphocytes % 24.0 Monocytes % 7.9 Eosinophils % 0.4 Basophils % 0.5 Nucleated Red Blood Cells % 0.0 Immature Granulocytes # 0.270 H Neutrophils # 5.8 Lymphocytes # 2.2 Monocytes # 0.7 Eosinophils # 0.0 Basophils # 0.1 Nucleated Red Blood Cells # 0.0 Sodium Level 137 Potassium Level 4.3 Chloride Level 105 Carbon Dioxide Level 24 Anion Gap 8 Blood Urea Nitrogen 12 Creatinine 0.68 Est Glomerular Filtrat > 60 Rate mL/min Glucose Level 76 Uric Acid 6.8 Calcium Level 8.9 Total Bilirubin 0.3 Direct Bilirubin 0.00 Indirect Bilirubin 0.3 Aspartate Amino Transf (AST/SGOT) 28 Alanine 33 Aminotransferase (ALT/SGPT) Alkaline Phosphatase 171 H Total Protein 6.8 Albumin 3.4 Globulin 3.40 H Albumin/Globulin Ratio 1.00 Lab Scanned Report REFERENCE LAB Disposition: Discharge Assessment/Plan IUP at 35 weeks and 6 days PIH, no evidence of severe preeclampsia. PIH labs are negative. Patient is asymptomatic. Blood pressures during monitoring and observation they were all 122 110s over 70s to 80s. Only one blood pressure in 140s over 80s range. She is asymptomatic. MACO borderline Patient was advised about adequate hydration today for 24 hours and return to clinic tomorrow after 424 hours for repeat MACO. labor precautions and kick count and precautions discussed with the signs and symptoms in detail. Patient verbalized understanding. She has an appointment for NST MACO in 3 days again in the hospital as well as will be seen tomorrow in the office with her primary care physician. Patient verbalized understanding. All questions were answered. She agreed to comply with instruction. LEONEL SPENCE MD Dec 04, 2018 15:43
== END 2018-12-04 12:10 | disposition home or self-care (01) ==
LOC: OBT 09:40 → L-D 09:41 → OBT 12:10
PROVIDERS: ATTEND Obstetrics & Gynecology
DX: O41.8X30 Other specified disorders of amniotic fluid and membranes, third trimester, not applicable or unspecified (principal); O09.523 Supervision of elderly multigravida, third trimester; Z3A.35 35 weeks gestation of pregnancy
CPT/HCPCS: 76818; 80053; 81003; 84560; 85025; Z7500; G0463

== ENCOUNTER 2018-12-08 13:39 | Outpatient (CLI) | payer BC ==
[~2018-12-08] VITALS: Ht 162.6 cm; Wt 70.1 kg
[2018-12-08 13:49] VITALS: Ht 162.6 cm; Wt 70.1 kg
--- NOTE | 2018-12-08 15:57 | TRIAGE ---
OB Triage Datetime Report Generated by CPN: 12/08/2018 15:57 Datetime: 12/08/2018 15:52 Stage of : OB Triage Maternal Assessment Level of Consciousness: Keenly Alert, Responsive DTR's/Clonus: DTRs 1+ Headache: Denies Breath Sounds, Left: Clear and Equal Breath Sounds, Right: Clear and Equal Nausea/Vomiting: Denies RUQ Epigastric Pain: Denies Monitor Mode: External Heart Rate FHR Baseline Rate: 135 Monitor Mode: External US Variability: Moderate 6-25 bpm Accelerations: 15X15 Decelerations: None Category: Category I Pain Assessment Pain Scale: 0 Pain Presence: None/Denies Pain Type: N/A Pain Goal: 3 Vaginal Exam Membrane Status: Intact Datetime: 12/08/2018 15:41 Maternal Assessment Level of Consciousness: Keenly Alert, Responsive DTR's/Clonus: DTRs 1+ Headache: Denies Blurred Vision: No Respiratory Effort: Unlabored Breath Sounds, Left: Clear and Equal Breath Sounds, Right: Clear and Equal Nausea/Vomiting: Denies RUQ Epigastric Pain: Denies Facial Edema: None Labor Evaluation Frequency: OCC Monitor Mode: External Duration (sec)2399: 20-40 Quality: Mild Pattern: Normal: <= 5 Contractions in 10 Minutes Resting Tone [place]: Relaxed Heart Rate FHR Baseline Rate: 135 Monitor Mode: External US Variability: Moderate 6-25 bpm Accelerations: 15X15 Decelerations: None Category: Category I Pain Assessment Pain Scale: 0 Pain Presence: None/Denies Pain Type: N/A Pain Goal: 3 Vaginal Exam Membrane Status: Intact Datetime: 12/08/2018 15:00 Stage of : OB Triage Maternal Assessment Level of Consciousness: Keenly Alert, Responsive DTR's/Clonus: DTRs 1+ Headache: Denies Breath Sounds, Left: Clear and Equal Breath Sounds, Right: Clear and Equal Nausea/Vomiting: Denies RUQ Epigastric Pain: Denies Labor Evaluation Frequency: OCC Monitor Mode: External Duration (sec)2399: 20-40 Quality: Mild Pattern: Normal: <= 5 Contractions in 10 Minutes Resting Tone [place]: Relaxed Heart Rate FHR Baseline Rate: 135 Monitor Mode: External US Variability: Moderate 6-25 bpm Accelerations: 15X15 Decelerations: None Category: Category I Pain Assessment Pain Scale: 0 Pain Presence: None/Denies Pain Type: N/A Pain Goal: 3 Vaginal Exam Membrane Status: Intact Datetime: 12/08/2018 14:00 Stage of : OB Triage Maternal Assessment Level of Consciousness: Keenly Alert, Responsive DTR's/Clonus: DTRs 1+ Headache: Denies Breath Sounds, Left: Clear and Equal Breath Sounds, Right: Clear and Equal Nausea/Vomiting: Denies RUQ Epigastric Pain: Denies Labor Evaluation Frequency: OCC Monitor Mode: External Duration (sec)2399: 20-40 Quality: Mild Pattern: Normal: <= 5 Contractions in 10 Minutes Intensity IUP (mmHg): 1 Resting Tone [place]: Relaxed Heart Rate FHR Baseline Rate: 135 Monitor Mode: External US Variability: Moderate 6-25 bpm Accelerations: 15X15 Decelerations: None Category: Category I Pain Assessment Pain Scale: 0 Pain Presence: None/Denies Pain Type: N/A Pain Goal: 3 Vaginal Exam Membrane Status: Intact Datetime: 12/08/2018 13:45 Assessment Type: Triage Maternal Assessment Level of Consciousness: Keenly Alert, Responsive DTR's/Clonus: DTRs 2+; No Clonus Headache: Denies Blurred Vision: No Respiratory Effort: Unlabored; Regular Rhythm; Equal Expansion Breath Sounds, Left: Clear and Equal Breath Sounds, Right: Clear and Equal Nausea/Vomiting: Denies RUQ Epigastric Pain: Denies Lower Extremities Edema: None Degree: None Upper Extremities Edema: None Degree: None Facial Edema: None Fall Risk Assessment History of Falling: (0) No Secondary Diagnosis: (0) No Ambulatory Aid: (0) Bedrest/Nurse Assist IV Therapy: (0) No Gait: (0) Normal/Bedrest/Immobile Mental Status: (0) Oriented to Own Ability Fall Score: 0 Fall Risk Score Definition: No Risk: No action required Datetime: 12/08/2018 13:31 Time of Arrival: 12/08/2018 13:31 EGA: 36.3 Arrived By: Ambulatory Arrived From: Home Chief Complaint: PT CAME IN FOR NST/BPP F/U FOR AMA AND HX STILL BORN Movement: Present Contractions: Denies/Absent Rupture of Membranes: Denies Vaginal Discharge: Denies Recent Sexual Intercouse: Denies Abdominal Trauma: Not Applicable Additional Patient Complaints: NONE Time Provider Notified: 12/08/2018 13:52 Provider Notified: DELSHAD Initial Plan: NST AND BPP Datetime: 12/04/2018 10:06 Fall Score: 0 Fall Risk Score Definition: No Risk: No action required Datetime: 12/04/2018 10:03 EGA: 35.6 Datetime: 12/04/2018 09:42 EGA: 35.1 Datetime: 12/02/2018 07:27 Fall Score: 0 Fall Risk Score Definition: No Risk: No action required Datetime: 12/01/2018 19:51 Fall Score: 0 Fall Risk Score Definition: No Risk: No action required Datetime: 12/01/2018 08:00 Fall Score: 20 Fall Risk Score Definition: No Risk: No action required Datetime: 11/30/2018 19:50 Fall Score: 0 Fall Risk Score Definition: No Risk: No action required Datetime: 11/30/2018 07:28 Fall Score: 0 Fall Risk Score Definition: No Risk: No action required Datetime: 11/29/2018 22:46 Fall Score: 0 Fall Risk Score Definition: No Risk: No action required Datetime: 11/29/2018 19:54 EGA: 34.6 Datetime: 11/29/2018 19:50 Fall Score: 0 Fall Risk Score Definition: No Risk: No action required Datetime: 11/11/2018 16:07 Fall Score: 0 Fall Risk Score Definition: No Risk: No action required Datetime: 11/11/2018 16:06 EGA: 32.2 Datetime: 09/01/2018 12:56 Fall Score: 0 Fall Risk Score Definition: No Risk: No action required Datetime: 09/01/2018 12:55 EGA: 22.1
--- NOTE | 2018-12-08 19:17 | PN ---
Triage Information Date/Time Reason for visit: Here for NST and BPP for advanced maternal age and history of stillborn Weeks of Gestation Patient is a 43-year-old 3 para 1 at 36 weeks and 3 days of gestation with estimated date of delivery January 04, 2019 Patient here for NST and BPP for advanced maternal age and history of stillborn Patient reports positive movement, denies vaginal bleeding and leaking fluid, denies uterine contractions She also has elevated blood pressures of 146/90 and 135/82 Patient denies shortness of breath or chest pain, denies headache or blurry vision, denies right upper quadrant pain /Para 3 para 1 Diabetes: none Hypertention: induced Objective Heart Rate: 140's Heart Rate Comments heart rate tracing category 1 Contractions: None Results/Medications Result Diagram: 12/08/18 1439 12/08/18 1439 Results 24 hrs Laboratory Tests Test 12/08/18 14:39 12/08/18 14:40 White Blood Count 9.1 Red Blood Count 4.05 L Hemoglobin 12.5 Hematocrit 37.1 Mean Corpuscular Volume 91.6 Mean Corpuscular Hemoglobin 30.9 Mean Corpuscular Hemoglobin Concent 33.7 Red Cell Distribution Width 12.5 Platelet Count 236 Mean Platelet Volume 9.7 Immature Granulocytes % 0.700 H Neutrophils % 65.7 Lymphocytes % 27.3 Monocytes % 5.6 Eosinophils % 0.4 Basophils % 0.3 Nucleated Red Blood Cells % 0.0 Immature Granulocytes # 0.060 H Neutrophils # 6.0 Lymphocytes # 2.5 Monocytes # 0.5 Eosinophils # 0.0 Basophils # 0.0 Nucleated Red Blood Cells # 0.0 Prothrombin Time 11.2 L Prothrombin Time Ratio 0.9 INR International Normalized Ratio 0.80 Activated Partial Thromboplast Time 24.0 Sodium Level 135 Potassium Level 4.0 Chloride Level 104 Carbon Dioxide Level 22 Anion Gap 9 Blood Urea Nitrogen 12 Creatinine 0.74 Est Glomerular Filtrat Rate mL/min > 60 Glucose Level 102 Uric Acid 7.1 Calcium Level 9.6 Total Bilirubin 0.4 Direct Bilirubin 0.00 Indirect Bilirubin 0.4 Aspartate Amino Transf (AST/SGOT) 22 Alanine Aminotransferase (ALT/SGPT) 18 Alkaline Phosphatase 182 H Total Protein 6.9 Albumin 3.4 Globulin 3.50 H Albumin/Globulin Ratio 0.97 Urine Color YELLOW Urine Clarity CLEAR Urine pH 7.0 Urine Specific [place] 1.005 Urine Ketones NEGATIVE Urine Nitrite NEGATIVE Urine Bilirubin NEGATIVE Urine Urobilinogen NEGATIVE Urine Leukocyte Esterase NEGATIVE Urine Hemoglobin NEGATIVE Urine Glucose NEGATIVE Urine Total Protein NEGATIVE Imaging Results PROCEDURE: OB ultrasound for biophysical profile CLINICAL INDICATION: History of stillborn. TECHNIQUE: Multiple sonographic images of the pelvis were obtained. Transabdominal view of the gravid uterus are available for review. The images were reviewed on a PACS workstation. COMPARISON: US PELVIS 12/04/2018 FINDINGS: breathing movement = 2/2 tone = 2/2 motion = 2/2 Quantitative amniotic fluid volume = 2/2 MACO = 11.3 cm Single live intrauterine with cardiac activity at 146 beats per minute. There is a anterior placenta without previa or abruption. IMPRESSION: 1. Single living intrauterine gestation in cephalic position. 2. Biophysical profile = 8/8. 3. MACO = 11.3 cm. RPTAT: [facility] Physician [place] Date Time Electronically viewed and signed by Aydin Juarez Physician on 12/08/2018 14:33 JH/ CC: FREEDOM ABBOTT MD [phone] Disposition: Discharge Assessment/Plan Labor precautions were given kick count instructions were given Patient was given instruction for 24-hour urine protein collection Patient was instructed to return in 48 hours for repeat NST and BP Patient instructed to follow-up with [facility] in 1 to 2 days JEFFREY DAVID MD Dec 08, 2018 19:17
== END 2018-12-08 15:50 | disposition home or self-care (01) ==
LOC: L-D 13:39 → OBT 13:39
PROVIDERS: ATTEND Obstetrics & Gynecology
DX: O36.8330 Maternal care for abnormalities of the fetal heart rate or rhythm, third trimester, not applicable or unspecified (principal); O13.3 Gestational [pregnancy-induced] hypertension without significant proteinuria, third trimester; O09.523 Supervision of elderly multigravida, third trimester; Z3A.36 36 weeks gestation of pregnancy
CPT/HCPCS: 76818; 80053; 81003; 84560; 85025; 85610; 85730; Z7500; G0463

== ENCOUNTER 2018-12-11 14:01 | Outpatient (CLI) | payer BC ==
[~2018-12-11] VITALS: Ht 162.6 cm; Wt 71.5 kg
[2018-12-11 14:47] VITALS: Ht 162.6 cm; Wt 71.5 kg
--- NOTE | 2018-12-11 18:29 | TRIAGE ---
OB Triage Datetime Report Generated by CPN: 12/11/2018 18:29 Datetime: 12/11/2018 18:00 Labor Evaluation Frequency: OCC Monitor Mode: External Quality: Mild Pattern: Normal: <= 5 Contractions in 10 Minutes Resting Tone [place]: Relaxed Heart Rate FHR Baseline Rate: 140 Monitor Mode: External US FHR Baseline Changes: No Baseline Change Variability: Moderate 6-25 bpm Accelerations: 15X15 Decelerations: None Category: Category I Pain Presence: None/Denies Datetime: 12/11/2018 17:00 Labor Evaluation Frequency: 2-7 Monitor Mode: External Duration (sec)2399: 30-90 Quality: Mild Pattern: Normal: <= 5 Contractions in 10 Minutes Resting Tone [place]: Relaxed Contraction Comments: Some uterine irritability noted Heart Rate FHR Baseline Rate: 130 Monitor Mode: External US FHR Baseline Changes: No Baseline Change Variability: Moderate 6-25 bpm Accelerations: 15X15 Decelerations: None Category: Category I Pain Presence: None/Denies Datetime: 12/11/2018 16:00 Labor Evaluation Frequency: 2-6 Monitor Mode: External Duration (sec)2399: 50-80 Quality: Mild Pattern: Normal: <= 5 Contractions in 10 Minutes Resting Tone [place]: Relaxed Heart Rate FHR Baseline Rate: 135 Monitor Mode: External US FHR Baseline Changes: No Baseline Change Variability: Moderate 6-25 bpm Accelerations: 15X15 Decelerations: None Category: Category I Pain Presence: None/Denies Datetime: 12/11/2018 15:30 Labor Evaluation Frequency: x2 UC noted this hour Monitor Mode: External Quality: Moderate Pattern: Normal: <= 5 Contractions in 10 Minutes Resting Tone [place]: Relaxed Heart Rate FHR Baseline Rate: 130 Monitor Mode: External US FHR Baseline Changes: No Baseline Change Variability: Moderate 6-25 bpm Accelerations: 15X15 Decelerations: None Category: Category I Pain Assessment Pain Scale: 2 Pain Presence: Intermittent Pain Type: Contraction; Ache Pain Location: Abdomen; Back Pain Goal: 0 Pain Relief Measures: Comfort Measures Datetime: 12/11/2018 15:00 Monitor Mode: External Resting Tone [place]: Relaxed Heart Rate FHR Baseline Rate: 135 Monitor Mode: External US FHR Baseline Changes: No Baseline Change Variability: Moderate 6-25 bpm Accelerations: 15X15 Decelerations: None Category: Category I Pain Presence: None/Denies Datetime: 12/11/2018 14:50 Time of Arrival: 12/11/2018 13:58 EGA: 36.6 Arrived By: Ambulatory Arrived From: Home Chief Complaint: F/U monitoring Movement: Present Contractions: Denies/Absent Rupture of Membranes: Denies Vaginal Discharge: Denies Recent Sexual Intercouse: Denies Abdominal Trauma: Not Applicable Patient Complaints: None Time Provider Notified: 12/11/2018 16:41 Provider Notified: Delshad Initial Plan: NST, BPP Datetime: 12/11/2018 14:40 Assessment Type: Triage Maternal Assessment Level of Consciousness: Keenly Alert, Responsive DTR's/Clonus: DTRs 2+; No Clonus Headache: Denies Blurred Vision: No Respiratory Effort: Unlabored; Regular Rhythm; Equal Expansion Breath Sounds, Left: Clear and Equal Breath Sounds, Right: Clear and Equal Nausea/Vomiting: Denies RUQ Epigastric Pain: Denies Lower Extremities Edema: Bilateral Lower Extremities Degree: Trace Upper Extremities Edema: None Degree: None Facial Edema: None Fall Risk Assessment History of Falling: (0) No Secondary Diagnosis: (0) No Ambulatory Aid: (0) Bedrest/Nurse Assist IV Therapy: (0) No Gait: (0) Normal/Bedrest/Immobile Mental Status: (0) Oriented to Own Ability Fall Score: 0 Fall Risk Score Definition: No Risk: No action required Datetime: 12/08/2018 13:45 Fall Score: 0 Fall Risk Score Definition: No Risk: No action required Datetime: 12/08/2018 13:31 EGA: 36.3 Datetime: 12/04/2018 10:06 Fall Score: 0 Fall Risk Score Definition: No Risk: No action required Datetime: 12/04/2018 10:03 EGA: 35.6 Datetime: 12/04/2018 09:42 EGA: 35.1 Datetime: 12/02/2018 07:27 Fall Score: 0 Fall Risk Score Definition: No Risk: No action required Datetime: 12/01/2018 19:51 Fall Score: 0 Fall Risk Score Definition: No Risk: No action required Datetime: 12/01/2018 08:00 Fall Score: 20 Fall Risk Score Definition: No Risk: No action required Datetime: 11/30/2018 19:50 Fall Score: 0 Fall Risk Score Definition: No Risk: No action required Datetime: 11/30/2018 07:28 Fall Score: 0 Fall Risk Score Definition: No Risk: No action required Datetime: 11/29/2018 22:46 Fall Score: 0 Fall Risk Score Definition: No Risk: No action required Datetime: 11/29/2018 19:54 EGA: 34.6 Datetime: 11/29/2018 19:50 Fall Score: 0 Fall Risk Score Definition: No Risk: No action required Datetime: 11/11/2018 16:07 Fall Score: 0 Fall Risk Score Definition: No Risk: No action required Datetime: 11/11/2018 16:06 EGA: 32.2 Datetime: 09/01/2018 12:56 Fall Score: 0 Fall Risk Score Definition: No Risk: No action required Datetime: 09/01/2018 12:55 EGA: 22.1
--- NOTE | 2018-12-11 19:07 | PN ---
Triage Information Date/Time December 11, 2018 Reason for visit: Here today for testing including NST/BPP due to advanced maternal age Weeks of Gestation 36 weeks and 6 days /Para 3 para 2 Diabetes: none Hypertention: none Additional information 44-year-old G3, P2 with IUP at 36 weeks and 6 days and care with Araceli Oquendo here tody for NST/ BPP due to AMA She denies any leaking of fluid, vaginal bleeding or decreased movement. Antepartum course completed only for advanced maternal age otherwise nonsignificant. She has been following by testing twice a week. Objective Heart Rate: 130's Heart Rate Comments Category 1 Contractions: None Exam GA: A&O, NAD Abdomen: soft, gravid, Fundal Hieght consistent with date NST; Cat 1 BPP: 8 Results/Medications Imaging Results ROCEDURE: US OB. CLINICAL INDICATION: Decreased pneumonia TECHNIQUE: Multiple sonographic images of the pelvis were obtained. The images were reviewed on a PACS workstation. COMPARISON: 12/08/2018 FINDINGS: There is a single live intrauterine . cardiac activity is identified at a rate of 142 beats per minute. presentation is cephalic. Placenta is anterior grade 1-2. Biophysical profile score is as follows: Breathing 2 Movements 2 Tone 2 Fluid volume 2 Amniotic fluid index = 15.5 cm Total biophysical profile score = 8/8 IMPRESSION: Biophysical profile score = 8/8 RPTAT: Disposition: Discharge Assessment/Plan IUP at 36 weeks and 6 days AMA ANT reassuring DC home' follow up as scheduled tomorrow with Dr. Charles Continue ANT Twice a week Strict labor precauton and kick counts discussed all questions were answered Patient verbaized understanding, LEONEL SPENCE MD Dec 11, 2018 19:07
== END 2018-12-11 18:20 | disposition home or self-care (01) ==
LOC: OBT 14:01 → L-D 14:02 → OBT 18:20
PROVIDERS: ATTEND Obstetrics & Gynecology
DX: O36.8330 Maternal care for abnormalities of the fetal heart rate or rhythm, third trimester, not applicable or unspecified (principal); O09.523 Supervision of elderly multigravida, third trimester; Z3A.36 36 weeks gestation of pregnancy
CPT/HCPCS: 76818; Z7500; G0463

== ENCOUNTER 2018-12-14 07:19 | Inpatient (IN) | payer BC ==
[~2018-12-14] VITALS: Ht 165.1 cm; Wt 70.2 kg
[2018-12-14 07:52] VITALS: Ht 165.1 cm; Wt 70.2 kg
[2018-12-14 07:59] VITALS: BP 149/93; PULSE 72; RESP 2
[2018-12-14] MEDS ORDERED: CEFAZOLIN 2 GM/50 ML (PMX) 50 ML IVPB SCH (08:00)
[2018-12-14] MEDS ORDERED: MISOPROSTOL 200 MCG TAB PR PRN ×2 (08:00→15:00)
[2018-12-14] MEDS ORDERED: OXYTOCIN 30 UNITS/LR 500 ML IV PRN ×2 (08:00→15:00)
[2018-12-14] MEDS ORDERED: CARBOPROST 250 MCG INJ IM PRN ×2 (08:00→15:00)
[2018-12-14] MEDS ORDERED: OXYTOCIN 30 UNITS/LR 500 ML IV SCH ×2 (08:00→14:41)
[2018-12-14] MEDS ORDERED: METHYLERGONOVINE 0.2 MG INJ IM PRN (08:00)
[2018-12-14] MEDS: LACTATED RINGER'S 1,000 ML IV SCH ×2 (08:22→09:55)
[2018-12-14] MEDS ORDERED: CITRIC ACID/NA CITRATE 30 ML CUP ONE (08:54)
[2018-12-14] MEDS ORDERED: CITRIC ACID/NA CITRATE 30 ML CUP PO ONE (09:00)
--- NOTE | 2018-12-14 09:22 | PREAC ---
Date/Time of Note Date/Time of Note DATE: 12/14/18 TIME: 09:20 Anesthesia Eval and Record Evaluation Time Pre-Procedure Interview DATE: 12/14/18 TIME: 09:20 Age 43 Sex female NPO: 8 hrs Preoperative diagnosis repeat c section sterlization Planned procedure c section, BTL Past Medical History Past Medical History: Includes : Gestational age: (39) Surgery & Anesthesia Issues No known issue Meds Anticoagulation: No Beta Vicki within 24 hr: No Reason Beta Vicki not given: Pt. not on B-Vicki Reported Medications Vit No.124/Iron/FA ( Vitamin Tablet) 1 Each Tablet, 1 EACH PO DAILY, TAB 09/01/18 Current Medications Lactated Ringer's 1,000 ml @ 125 mls/hr Q8H IV Last administered on 12/14/18at 08:22; Admin Dose 125 MLS/HR; Start 12/14/18 at 07:53 Cefazolin Sodium/ Dextrose 50 ml @ 100 mls/hr ONCE IVPB ; Start 12/14/18 at 08:00 Oxytocin/Lactated Ringer's 500 ml @ 125 mls/hr POST IV ; Start 12/14/18 at 08:00 Oxytocin/Lactated Ringer's 500 ml @ 0 mls/hr ONCE PRN IV .VAGINAL BLEEDING; Start 12/14/18 at 08:00 Methylergonovine Maleate (Methergine) 0.2 mg ONCE PRN IM .VAGINAL BLEEDING; Start 12/14/18 at 08:00 Carboprost Tromethamine (Hemabate) 250 mcg ONCE PRN IM .VAGINAL BLEEDING; Start 12/14/18 at 08:00 Misoprostol (Cytotec) 1,000 mcg ONCE PRN IA .VAGINAL BLEEDING; Start 12/14/18 at 08:00 Meds reviewed: Yes Allergies Coded Allergies: No Known Allergy (Unverified , 12/08/18) Allergies Reviewed: Yes Labs/Studies Labs Reviewed: Reviewed by anesthesiologist Result Diagram: 12/14/1874412/14/1845 Laboratory Tests 12/14/18 07:45 Blood Bank Test 12/14/18 07:45 Antibody Screen NEGATIVE Blood Type B POSITIVE Rh Immune Globulin Candidate NO test: Positive Studies: ECG (n/a), CXR (n/a) Pre-procedure Exam Last vitals Vital Signs Date Temp Pulse Resp B/P (MAP) Pulse Ox O2 O2 Flow FiO2 Time Delivery Rate 12/14/18 97.6 72 2 149/93 Room Air 07:59 (111) Airway: Adequate mouth opening Mallampati: Mallampati I Teeth: Normal Lung: Normal Heart: Normal ASA Physical Status ASA physical status: 2 Emergency: None Planned Anesthetic Neuraxial: Spinal Planned Pain Management Sub-arachniod narcotics Pre-operative Attestations Prior to commencing anesthesia and surgery, the patient was re-evaluated, there was verification of: *The patient's identity *The results of appropriate recent lab work and preoperative vital signs *The above evaluation not changing prior to induction *Anesthetic plan, risk benefits, alternative and complications discussed with patient/family; questions answered; patient/family understands, accepts and wishes to proceed. EBENEZER HASSAN MD Dec 14, 2018 09:22
--- NOTE | 2018-12-14 09:58 | HP ---
Date/Time of Note Date/Time of Note DATE: 12/14/18 TIME: 09:56 OB - History Hx of Present Chief Complaint: scheduled Estimated Due Date: Jan 04, 2019 : 3 Para: 2 Spontaneous : 0 Therapeutic : 0 Care: Good Care Ultrasounds: Normal mid trimester US Obstetrical Complications: Pre-eclampsia Medical Complications: None Past Family/Social History * Past Medical, Surgical, Family and Obstetric Histories reviewed from chart. GBS Status: Negative OB Admission Exam Vital Signs Vital Signs Vital Signs Date Temp Pulse Resp B/P (MAP) Pulse Ox O2 O2 Flow FiO2 Time Delivery Rate 12/14/18 97.6 72 2 149/93 Room Air 07:59 (111) Physical Exam HEENT: WNL Heart: Rhythm Normal Lungs: Clear, Equal Abdomen: WNL Extremities: Normal Reflexes: Normal Heart Rate: 120's Accelerations: Accelerations Present Decelerations: No Decelerations Varibility: Moderate Last 72 hours Lab Results CBC & BMP 12/14/18 07:45 Liver Function Test 12/14/18 07:45 Alanine Aminotransferase (ALT/SGPT) 14 Albumin 3.7 Alkaline Phosphatase 236 H Aspartate Amino Transf (AST/SGOT) 21 Direct Bilirubin 0.00 Total Protein 7.6 OB Assessment/Plan Reason for admission: section, other Other Assessment: voluntary sterilization Plan: Section, Other Other plan: Bilateral tubal ligation FREEDOM ABBOTT MD Dec 14, 2018 09:58
[2018-12-14] MEDS ORDERED: morphine SULFATE/PF (10 MG/10 ML) INJ ONE (10:09)
[2018-12-14] MEDS ORDERED: KETOROLAC 30 MG INJ ONE (10:09)
[2018-12-14] MEDS ORDERED: ONDANSETRON 4 MG INJ ONE (10:09)
[2018-12-14] MEDS ORDERED: METOCLOPRAMIDE 10 MG INJ ONE (10:09)
[2018-12-14] MEDS ORDERED: FENTAnyl 50 MCG/ML VIAL ONE (10:53)
[2018-12-14] MEDS ORDERED: PHENYLephrine (100 MCG/ML) 10ML SYG ONE (11:25)
--- NOTE | 2018-12-14 11:37 | OPPN ---
Date/Time of Note Date/Time of Note DATE: 12/14/18 TIME: 11:34 Operative Report Planned Procedure Procedure date Dec 14, 2018 Procedure(s) Repeat c/s and BTL Performed by Freedom Abbott MD Tetryl Wringer Operator: LULÚ PEDRAZA M.D. 2nd Tetryl Wringer Operator none Anesthesiologist: EBENEZER HASSAN MD Pre-procedure diagnosis 37 weeks, previous c/s, preeclampsia and voluntary sterilization [id number] Anesthesia Type: [id number] spinal Post-Procedure Post-procedure diagnosis Same Findings Live Baby [], Apgars [] and [], weight [], position [], [] presentation []cord. Estimated Blood Loss: other (500 ml) Specimen(s) Placenta and Fallopian tubes Grafts/Implant(s) none Complication(s) none FREEDOM ABBOTT MD Dec 14, 2018 11:37
[2018-12-14] MEDS ORDERED: morphine 2 MG INJ IV PRN ×6 (12:00)
[2018-12-14] MEDS ORDERED: KETOROLAC 30 MG INJ IV PRN (12:00)
[2018-12-14] MEDS ORDERED: ONDANSETRON 4 MG INJ IV PRN ×2 (12:00)
[2018-12-14] MEDS ORDERED: DIPHENHYDRAMINE 50 MG INJ IV PRN ×2 (12:00)
[2018-12-14] MEDS ORDERED: NALOXONE (0.4 MG/ML) INJ IV PRN (12:00)
--- NOTE | 2018-12-14 13:01 | OPR ---
DATE OF OPERATION: 12/14/2018 PREOPERATIVE DIAGNOSES: 1. at 37 weeks. 2. Previous section. 3. Preeclampsia. 4. Voluntary sterilization. POSTOPERATIVE DIAGNOSES: 1. at 37 weeks. 2. Previous section. 3. Preeclampsia. 4. Voluntary sterilization. OPERATION: Repeat low transverse section and bilateral tubal ligation. SURGEON: Freedom Charles MD PLANER CHAIN OFFBEARER: Alexis Hernandez MD ANESTHESIA: Spinal. ANESTHESIOLOGIST: Nenita Nunez MD PROCEDURE IN DETAILS: The patient was taken to the operating room and placed on the operating table. After successful spinal anesthesia was given, the patient was placed in supine position. The area was prepared and draped in the usual sterile fashion. Spinal anesthesia was tested and was satisfact ory. Using a scalpel, a Pfannenstiel incision was made about 2 fingerbreadths above the symphysis pu bis. The incision was carried to the fascia. The fascia was incised and extended bilaterally with B ovie. Two Kochers were used to separate the fascia from the muscle. The muscle was dissected down t o peritoneum. The peritoneum was secured with 2 Kellys and incised with Metzenbaum scissors. Using a scalpel, a small transverse incision was made on the lower segment of the uterus. Upon entering th e uterine cavity, bandage scissors were inserted to extend the incision bilaterally, curved up. Baby was delivered from cephalic presentation. After suctioning clear of amniotic fluid, the baby was ralph nded off to the team in attendance. Apgars were 9 and 9. Placenta was delivered without di fficulty. The uterus was closed in #1 Monocryl continuous locked. After assuring hemostasis, both o varies and tubes were inspected, all looked normal. The right fallopian tube was grasped with a [facility] ock clamp. Using 0 plain suture ligature, a 5 cm segment of the right fallopian tube was doubly liga bea. Using Metzenbaum scissors, a portion of the right fallopian tube above the ligated area was exc ised and sent to pathology. Same procedure was repeated on the left fallopian tube. After assuring hemostasis, peritoneum was closed with 2-0 Vicryl continuous. Fascia was closed with #1 Vicryl janel nuous in 2 segments. Subcutaneous tissue was reapproximated with 2-0 plain. Skin was closed with st aples. Estimated blood loss was 500 mL. All counts were correct. Dictated By: FREEDOM JARAMILLO/TERRY Conf#: [id number] DID#: [id number]
[2018-12-14] MEDS ORDERED: LACTATED RINGER'S 1,000 ML IV SCH (14:41)
--- NOTE | 2018-12-14 14:44 | PAC ---
Date/Time of Note Date/Time of Note DATE: 12/14/18 TIME: 14:44 Post-Anesthesia Notes Post-Anesthesia Note Last documented vital signs Vital Signs Date Temp Pulse Resp B/P (MAP) Pulse Ox O2 O2 Flow FiO2 Time Delivery Rate 12/14/18 97.6 72 2 149/93 Room Air 17:59 (111) Activity: WNL Respiratory function: WNL Cardiovascular function: WNL Mental status: Baseline Pain reasonably controlled: Yes Hydration appropriate: Yes Nausea/Vomiting absent: No EBENEZER HASSAN MD Dec 14, 2018 14:44
[2018-12-14 14:45] VITALS: BP 143/90; PULSE 78; RESP 16
[2018-12-14] MEDS ORDERED: OXYCODONE/ACETAMINOPHEN (5/325) TAB PO PRN (15:00)
[2018-12-14 15:45] VITALS: BP 126/68; PULSE 82; RESP 20
[2018-12-14 19:30] VITALS: BP 135/78; PULSE 82; RESP 18
[2018-12-14] MEDS: SENNA/DOCUSATE NA (8.6MG/50MG) TAB PO SCH (22:12)
[2018-12-14] MEDS: LANOLIN HPA 1 PKT TOP PRN (22:12)
[2018-12-15] VITALS: BP 137/81; PULSE 80; RESP 18
[2018-12-15] MEDS: KETOROLAC 30 MG INJ IV PRN ×2 (00:30→08:52)
[2018-12-15 04:27] VITALS: BP 132/78; PULSE 75; RESP 18
[2018-12-15] MEDS: SENNA/DOCUSATE NA (8.6MG/50MG) TAB PO SCH ×2 (08:52→21:42)
[2018-12-15] MEDS: IBUPROFEN 800 MG TAB PO SCH ×2 (15:40→22:23)
[2018-12-15 16:00] VITALS: BP 121/80; PULSE 76; RESP 18
--- NOTE | 2018-12-15 19:22 | QN ---
Documentation Comment No complaint Afebrile VSS Abdomen soft POD #1 Stable Ambulate Advance diet. FREEDOM ABBOTT MD Dec 15, 2018 19:22
[2018-12-15 19:30] VITALS: BP 133/82; PULSE 70; RESP 18
[2018-12-16] VITALS (10 sets, daily range): BP systolic 129–157; BP diastolic 78–92; PULSE 67–76; RESP 18
[2018-12-16] MEDS: OXYCODONE/ACETAMINOPHEN (5/325) TAB PO PRN (04:23)
[2018-12-16] MEDS: IBUPROFEN 800 MG TAB PO SCH ×3 (06:00→21:59)
--- NOTE | 2018-12-16 08:21 | OPPN ---
Date/Time of Note Date/Time of Note DATE: 12/16/18 TIME: 08:20 Anesthesia Follow up Anesthesia Follow up Last documented vital signs Vital Signs Date Temp Pulse Resp B/P (MAP) Pulse Ox O2 O2 Flow FiO2 Time Delivery Rate 12/16/18 98.0 74 18 129/78 Room Air 04:00 (95) 12/15/18 97 04:27 Respiratory function: WNL Cardiovascular function: WNL Comments A 43 year female s/p spina, duramorph for post op pain, pod#1 is fine. pain is controlled, no itching, n/v, headache, neural deficit. EBENEZER HASSAN MD Dec 16, 2018 08:21
[2018-12-16] MEDS: SENNA/DOCUSATE NA (8.6MG/50MG) TAB PO SCH ×2 (09:00→20:27)
--- NOTE | 2018-12-16 19:45 | QN ---
Documentation Comment No complaint Afebrile BP elevated Abdomen soft POD #2 stable Start nifedipine to control BP FREEDOM ABBOTT MD Dec 16, 2018 19:45
[2018-12-16] MEDS ORDERED: NIFEdipine (XL) 30 MG TAB PO ONE (20:00)
[2018-12-17 00:30] VITALS: BP 139/82; PULSE 76; RESP 18
[2018-12-17 04:08] VITALS: BP 140/81; PULSE 85; RESP 18
[2018-12-17] MEDS: IBUPROFEN 800 MG TAB PO SCH ×3 (05:46→22:04)
[2018-12-17 08:00] VITALS: BP 126/67; PULSE 85; RESP 18
[2018-12-17] MEDS: SENNA/DOCUSATE NA (8.6MG/50MG) TAB PO SCH ×2 (08:51→22:04)
[2018-12-17] MEDS ORDERED: DIPHTH/TET/ACEL PERTUSS (ADULT) 0.5 ML VIAL IM* ONE (09:00)
[2018-12-17 12:00] VITALS: BP 129/75; PULSE 101
--- NOTE | 2018-12-17 12:52 | QN ---
Documentation Comment No complaint Afebrile BP improved Abdomen soft ND POD #3 Stable Continue to monitor BP. FREEDOM ABBOTT MD Dec 17, 2018 12:52
[2018-12-17 15:30] VITALS: BP 125/69; PULSE 87; RESP 17
[2018-12-17 20:00] VITALS: BP 139/93; PULSE 90; RESP 20
[2018-12-18] VITALS: BP 118/79; PULSE 76; RESP 20
[2018-12-18 04:53] VITALS: BP 129/64; PULSE 78; RESP 20
[2018-12-18] MEDS: IBUPROFEN 800 MG TAB PO SCH ×2 (05:36→14:26)
[2018-12-18 08:00] VITALS: BP 127/64; PULSE 84; RESP 18
[2018-12-18] MEDS: SENNA/DOCUSATE NA (8.6MG/50MG) TAB PO SCH (09:06)
[2018-12-18] MEDS: LANOLIN HPA 1 PKT TOP PRN (09:07)
[2018-12-18] MEDS: OXYCODONE/ACETAMINOPHEN (5/325) TAB PO PRN (12:01)
[2018-12-18 12:35] VITALS: BP 148/72; PULSE 70; RESP 18
--- NOTE | 2018-12-18 14:43 | DS ---
Date/Time of Note Date/Time of Note DATE: 12/18/18 TIME: 14:42 Obstetrical Discharge Record Final Diagnosis Final Diagnosis: Term delivered Vaginal Delivery Obstetrical Delivery: Bilateral Tubal Ligation Section Section: Repeat Complications Preg induced Hypertension Condition on Discharge Physical Assessment Voiding: Yes Bowel Movement: Yes Breast: Soft, non-tender, Filling Fundus: Firm Abdomen and Incision: Incision intact Calf Tenderness: No Patient Condition: Stable FREEDOM ABBOTT MD Dec 18, 2018 14:43
[2018-12-18 16:10] VITALS: BP 145/78; PULSE 82; RESP 18
--- NOTE | 2018-12-19 17:13 | DELSUM ---
Delivery Summary A-C Datetime Report Generated by CPN: 12/19/2018 17:13 DELIVERY PERSONNEL Community Health Navigator: [place], May MATERNAL INFORMATION Delivery Anesthesia: Spinal Medications in Delivery: SEE ANESTHESIA RECORD Delivery QBL (ml): 544 Placenta Cultured: No Maternal Complications: Other Other Maternal Complications: ELEVATED BLOOD PRESSURES LABOR SUMMARY EDC: 01/04/2019 00:00 No. Babies in Womb: 1 Attempted: Yes Labor Anesthesia: None LABOR INFORMATION Reason for Induction: Not Applicable Group B Beta Strep: Negative Antibiotics # of Doses: 1 Antibiotics Time of Last Dose: 12/14/2018 10:22 Steroids Given: None Reason Steroids Not Administered: Not Applicable MEMBRANES Membranes Rupture Method: Artificial Rupture of Membranes: 12/14/2018 10:42 Length of Rupture (hr): 0.00 Amniotic Fluid Color: Clear Amniotic Fluid Amount: Moderate Amniotic Fluid Odor: None STAGES OF LABOR Stage 3 hr: 0 Stage 3 min: 1 CSECTION DELIVERY Primary Indication: Repeat Elective Other Primary Indication: ELEVATED BLOOD PRESSURES Secondary Indication: N/A CSection Urgency: Elective CSection Incidence: Repeat Labor: No Labor Elective: N/A CSection Incision: Lower Uterine Transverse Sterilization Procedure: [place] BABY A INFORMATION Infant Delivery Date/Time: 12/14/2018 10:42 Method of Delivery: Born in Route : No : N/A Forceps: N/A Vacuum Extraction: N/A Shoulder Dystocia : N/A SHOULDER DYSTOCIA BABY A Delivery Date/Time: 12/14/2018 10:42 PRESENTATION/POSITION BABY A Presentation: Cephalic Cephalic Presentation: Vertex Vertex Position: Right Occipital Anterior Breech Presentation: N/A PLACENTA INFORMATION BABY A Placenta Delivery Time : 12/14/2018 10:43 Placenta Method of Delivery: Manual Removal Placenta Status: Delivered SCORES BABY A Heart Rate 1 min: >100 bpm Resp Effort 1 min: Good Cry Reflex Irritability 1 min: Cough/Sneeze/Pulls Away Muscle Tone 1 min: Active Motion Color 1 min: Body [place], Extremit Blue Resuscitation Effort 1 min: Tactile Stimulation SCORE 1 MIN: 9 Heart Rate 5 min: >100 bpm Resp Effort 5 min: Good Cry Reflex Irritability 5 min: Cough/Sneeze/Pulls Away Muscle Tone 5 min: Active Motion Color 5 min: Body [place], Extremit Blue Resuscitation Effort 5 min: Tactile Stimulation SCORE 5 MIN: 9 INFORMATION BABY A Gestational Age at Delivery: 37.0 Gestational Status: Early Term- 37- 38.6 Weeks Outcome : Liveborn, with signs of life Condition : Stable Infant Sex: Female IDENTIFICATION/MEDS BABY A ID Band Number: [id number] ID Band Location: Right Leg; Left Arm Sensor Applied: Yes Sensor Number: [id number] Sensor Location : Cord Clamp Vitamin K Given : Not Given Erythromycin Given: Not Given WEIGHT/LENGTH BABY A Birthweight (gm): 2520 Weight (lb): 5 Weight (oz): 9 Infant Length (in): 18.50 Infant Length (cm): 46.99 CORD INFORMATION BABY A No. Cord Vessels: 3 Nuchal Cord : N/A Cord Blood Taken: Yes Infant Suction: Mouth; Nose ASSESSMENT BABY A Infant Complications: None Physical Findings at Delivery: Within Normal Limits Respirations: Appears Normal Medication Specialist/ALS Called : No Infant Care By: JEANETTE/TAYLA Transferred To: Remains with Mother
== END 2018-12-18 16:20 | disposition home or self-care (01) | DRG 785 ==
LOC: L-D 07:19 → PP1 14:33
PROVIDERS: ADMIT Obstetrics & Gynecology; ATTEND Obstetrics & Gynecology
PROC: 0UB70ZZ Excision of Bilateral Fallopian Tubes, Open Approach (ICD-10-PCS; 2018-12-14)
PROC: 10D00Z1 Extraction of Products of Conception, Low, Open Approach (ICD-10-PCS; principal; 2018-12-14 10:00)
DX: O14.93 Unspecified pre-eclampsia, third trimester (principal); O34.211 Maternal care for low transverse scar from previous cesarean delivery; Z3A.37 37 weeks gestation of pregnancy; Z37.0 Single live birth; Z30.2 Encounter for sterilization
CPT/HCPCS: 80053; 81003; 84560; 85025; 85610; 85730; 86592; 86850; 86900; 86901; 87340; 88302; 99464; J0690; J1885; J2274; J2370; J2405; J2590; J2765; J3010; J7120